=== PATIENT | female | born 1945 | race Caucasian/White ===

== ENCOUNTER → 2016-09-28 | Outpatient (CLI) | payer MEDICARE ==
[2016-09-28 19:24] LABS: IMMUNOGLOBULIN M 35.4 MG/DL (40-230)
== END ==
LOC: M SMT 11:03
PROVIDERS: ATTEND Internal Medicine Pulmonary Disease
DX: J01.90 Acute sinusitis, unspecified (principal)

== ENCOUNTER → 2016-11-11 | Outpatient (REF) | payer MEDICARE | LOC: M LAB REF 16:32 | PROVIDERS: ATTEND Internal Medicine | DX: E78.00 Pure hypercholesterolemia, unspecified (principal) ==

== ENCOUNTER 2021-02-19 19:58 | Emergency (ER) | payer MEDICARE ==
[~2021-02-19] VITALS: Ht 160 cm; Wt 71.2 kg
[2021-02-19] MEDS ORDERED: occuvite PO (20:14)
[2021-02-19] MEDS ORDERED: MULT-90 PO (20:14)
[2021-02-19] MEDS ORDERED: GARL500C2 PO (20:14)
[2021-02-19] MEDS ORDERED: NAPR-885 PO (20:14)
[2021-02-19] MEDS ORDERED: CALC600T57 PO (20:14)
[2021-02-19] MEDS ORDERED: MYCO15CR TOP (20:14)
[2021-02-19] MEDS ORDERED: CYCL-707 PO (20:14)
[2021-02-19] MEDS ORDERED: VITA1CAP25 PO (20:14)
[2021-02-19] MEDS ORDERED: VASO5TAB11 PO (20:14)
[2021-02-19] MEDS ORDERED: DOCU-153 PO (20:14)
[2021-02-19] MEDS ORDERED: FURO20TA2 PO (20:14)
[2021-02-19] MEDS ORDERED: VITA400C56 PO (20:14)
[2021-02-19] MEDS ORDERED: LEVO2TA PO (20:14)
[2021-02-19] MEDS ORDERED: AMIT50TA PO (20:14)
[2021-02-19] MEDS ORDERED: VITA500T21 PO (20:14)
[2021-02-19] MEDS ORDERED: HYDR-4514 PO (20:22)
[2021-02-19] MEDS ORDERED: KETOROLAC 30 MG/ML 1ML VIAL IV ONE (23:05)
[2021-02-19] MEDS ORDERED: METHOCARBAMOL 1,000 MG/10 ML VIAL (J2800) IV ONE (23:05)
[2021-02-19 23:36] LABS: BASO % 0.5 % (0.0-1.0); EOS # 0.2 10^3/uL (0.0-0.5); EOS % 2.2 % (0.0-3.0); HEMATOCRIT 37.9 % (36.0-47.0); HEMOGLOBIN 12.2 g/dl (12.0-15.5); LYMPH # 2.1 10^3/uL (1.5-5.0); LYMPH % 25.9 % (24.0-44.0); MEAN CORPUSCULAR HEMOGLOBIN 28.4 pg (27.0-33.0); MEAN CORPUSCULAR HGB CONC 32.2 g/dl (32.0-36.5); MEAN CORPUSCULAR VOLUME 88.3 fl (80.0-96.0); MONO # 0.5 10^3/uL (0.0-0.8); MONO % 6.2 % (2.0-8.0); NEUTROPHILS # 5.3 10^3/uL (1.5-8.5); NEUTROPHILS % 64.8 % (36.0-66.0); PLATELET COUNT, AUTOMATED 381 10^3/uL (150-450); RED BLOOD COUNT 4.29 10^6/uL (4.00-5.40); WHITE BLOOD COUNT 8.2 10^3/uL (4.0-10.0)
[2021-02-20] LABS: BLOOD UREA NITROGEN 21 MG/DL (7-18); CALCIUM LEVEL 9.3 MG/DL (8.8-10.2); CARBON DIOXIDE LEVEL 30 MEQ/L (21-32); CHLORIDE LEVEL 103 MEQ/L (98-107); CREATININE FOR GFR 0.71 MG/DL (0.55-1.30); GLOMERULAR FILTRATION RATE > 60.0 (>39); GLUCOSE, FASTING 105 MG/DL (70-100); POTASSIUM SERUM 4.2 MEQ/L (3.5-5.1); SODIUM LEVEL 138 MEQ/L (136-145)
--- NOTE | 2021-02-20 00:33 | REPVR ---
PROCEDURE INFORMATION: Exam: MR Lumbar Spine Without Contrast Exam date and time: 02/19/2021 12:19 AM Age: 75 years old Clinical indication: Other: Urinary incontinence, saddle parethesia, R/O cauda equina TECHNIQUE: Imaging protocol: Multiplanar magnetic resonance images of the lumbar spine without intravenous contrast. COMPARISON: No relevant prior studies available. FINDINGS: Vertebrae: Mild lower lumbar levoconvex curvature. Normal vertebral body heights and alignments. Small left lateral L4 vertebral osseous hemangioma. Spinal cord: Normal signal. No cord compression. Spinal cord terminates at L1. Multilevel findings: Diffuse degenerative disc desiccation, disc height loss, and associated degenerative endplate marrow signal changes most severe at L4-S1. L1-L2: No significant disc disease. No significant spinal canal stenosis. No neural foraminal stenosis. L2-L3: No significant disc disease. No significant spinal canal stenosis. No neural foraminal stenosis. L3-L4: Mild facet arthropathy, ligamentum flavum thickening, and disc bulge. Minimal spinal/foraminal stenosis. L4-L5: Moderate facet arthropathy, ligamentum flavum thickening, with disc height loss, disc bulging and endplate spurring. Right subarticular 8 x 4 mm synovial cyst. Question left-sided laminotomy. Small left subarticular disc protrusion osteophyte. Mild to moderate foraminal and subarticular and spinal stenosis. L5-S1: Mild facet arthropathy. Disc height loss with disc bulging and minimal endplate spurring. Moderate left subarticular stenosis. Mild bilateral foraminal stenosis. Soft tissues: Unremarkable. IMPRESSION: Mild moderate lumbar spondylosis detailed above. Electronically signed by: Sal Soto On 02/20/2021 00:33:24 AM
[2021-02-20] MEDS ORDERED: METH-1165 PO (01:34)
[2021-02-20 01:55] VITALS: BP 175/81
== END 2021-02-20 01:57 | disposition home or self-care (01) ==
LOC: M ED 19:58
DX: M54.5 Low back pain (principal); M47.816 Spondylosis without myelopathy or radiculopathy, lumbar region; M48.07 Spinal stenosis, lumbosacral region; I50.9 Heart failure, unspecified; Z88.1 Allergy status to other antibiotic agents; Z79.899 Other long term (current) drug therapy
CPT/HCPCS: 72148; 80048; 81001; 85025; 96374; 96375; 99284; J1885; J2800

== ENCOUNTER 2021-07-22 18:02 | Inpatient (IN) | payer MEDICARE ==
[~2021-07-22] VITALS: Ht 157.5 cm; Wt 72.7 kg
[~2021-07-22 18:02] MED LIST: AMIT50TA PO; CALC600T57 PO; CYCL-707 PO; DOCU-153 PO; FURO20TA2 PO; GARL500C2 PO; HYDR-4514 PO; LEVO2TA PO; METH-1165 PO; MULT-90 PO; MYCO15CR TOP; NAPR-885 PO; VASO5TAB11 PO; VITA1CAP25 PO; VITA400C56 PO; VITA500T21 PO; occuvite PO
--- NOTE | 2021-07-22 18:59 | REPVR ---
PROCEDURE INFORMATION: Exam: CT Head Without Contrast Exam date and time: 07/22/2021 6:24 PM Age: 75 years old Clinical indication: Weakness, extremity; Left; Additional info: Weakness left side TECHNIQUE: Imaging protocol: Computed tomography of the head without contrast. Radiation optimization: All CT scans at this facility use at least one of these dose optimization techniques: automated exposure control; mA and/or kV adjustment per patient size (includes targeted exams where dose is matched to clinical indication); or iterative reconstruction. COMPARISON: No relevant prior studies available. FINDINGS: Brain: Small cystic focus in the in posterior left frontal lobe may represent a chronic lacunar infarct. Low-attenuation focus in the central jj consistent with a chronic infarct. There is mild parenchymal volume loss. Mild white matter changes are demonstrated consistent with chronic age related small vessel ischemic changes. Cerebral ventricles: No ventriculomegaly. Paranasal sinuses: Visualized sinuses are unremarkable. No fluid levels. Mastoid air cells: Visualized mastoid air cells are well aerated. Bones/joints: Unremarkable. No acute fracture. Soft tissues: Unremarkable. IMPRESSION: 1. Low-attenuation focus in the central jj consistent with a chronic infarct. 2. There is mild parenchymal volume loss. Mild white matter changes are demonstrated consistent with chronic age related small vessel ischemic changes. Electronically signed by: Vivek Borges On 07/22/2021 18:58:43 PM
[2021-07-22 21:25] LABS: BASO % 0.4 % (0.0-1.0); EOS # 0.3 10^3/uL (0.0-0.5); EOS % 2.9 % (0.0-3.0); HEMATOCRIT 36.7 % (36.0-47.0); HEMOGLOBIN 11.8 g/dl (12.0-15.5); LYMPH # 2.3 10^3/uL (1.5-5.0); LYMPH % 24.8 % (24.0-44.0); MEAN CORPUSCULAR HEMOGLOBIN 29.2 pg (27.0-33.0); MEAN CORPUSCULAR HGB CONC 32.2 g/dl (32.0-36.5); MEAN CORPUSCULAR VOLUME 90.8 fl (80.0-96.0); MONO # 0.7 10^3/uL (0.0-0.8); MONO % 7.3 % (2.0-8.0); NEUTROPHILS # 5.8 10^3/uL (1.5-8.5); NEUTROPHILS % 64.3 % (36.0-66.0); PLATELET COUNT, AUTOMATED 342 10^3/uL (150-450); RED BLOOD COUNT 4.04 10^6/uL (4.00-5.40); WHITE BLOOD COUNT 9.1 10^3/uL (4.0-10.0)
[2021-07-22 21:35] LABS: INR 1.07; PROTHROMBIN TIME 14.3 SECONDS (12.7-14.5)
[2021-07-22 21:36] LABS: PARTIAL THROMBOPLASTIN TIME 28.1 SECONDS (25.9-37.0)
[2021-07-22 21:57] LABS: BLOOD UREA NITROGEN 20 MG/DL (7-18); CALCIUM LEVEL 9.4 MG/DL (8.8-10.2); CARBON DIOXIDE LEVEL 32 MEQ/L (21-32); CHLORIDE LEVEL 103 MEQ/L (98-107); CK-MB VALUE MASS 1.4 NG/ML (<3.6); CPK CREATINE PHOSPHOKINASE 50 U/L (26-192); CREATININE FOR GFR 0.72 MG/DL (0.55-1.30); GLOMERULAR FILTRATION RATE > 60.0 (>39); GLUCOSE, FASTING 131 MG/DL (70-100); POTASSIUM SERUM 5.2 MEQ/L (3.5-5.1); SODIUM LEVEL 136 MEQ/L (136-145); TROPONIN I < 0.02 NG/ML (< 0.10)
[2021-07-22 22:06] LABS: RSV AMPLIFICATION NEGATIVE (NEGATIVE)
[2021-07-22] MEDS ORDERED: LABETALOL 100MG/20ML VIAL IV STA (22:12)
--- NOTE | 2021-07-22 23:04 | REPVR ---
PROCEDURE INFORMATION: Exam: MR Head Without Contrast Exam date and time: 07/22/2021 9:40 PM Age: 75 years old Clinical indication: Numbness / parasthesia and speech disturbance and weakness, extremity; Left; Bilateral; Slurred speech; Additional info: Neurodeficits, post CVA on CT TECHNIQUE: Imaging protocol: MR of the head without contrast. COMPARISON: CT Head without contrast 07/22/2021 6:25 PM FINDINGS: Motion limited examination. Major vascular flow voids at the skull base are preserved. No extra-axial fluid collection. No hydrocephalus. No midline shift or intracranial mass effect. Nonspecific white matter gliosis, probable chronic microvascular ischemia. 6 mm cystic lesion at the left frontal lobe, stable from recent CT study. There is diffusion restriction involving the right jj measuring 2 cm. Associated T2 prolongation. Visualized paranasal sinuses and mastoid air cells are clear. IMPRESSION: 2 cm acute/early subacute ischemic infarct at the right jj. Electronically signed by: Ajay Cardozo On 07/22/2021 23:04:22 PM
--- NOTE | 2021-07-22 23:04 | REPVR ---
PROCEDURE INFORMATION: Exam: MRA Head Without Contrast; Arteriography Exam date and time: 07/22/2021 9:40 PM Age: 75 years old Clinical indication: Numbness and speech disturbance and weakness; Slurred speech; Additional info: Neurodeficits, post CVA on CT TECHNIQUE: Imaging protocol: Magnetic resonance angiography head without contrast. Exam focused on the arteries. COMPARISON: CT Head without contrast 07/22/2021 6:25 PM FINDINGS: Limitations: Patient motion. ANTERIOR CIRCULATION: Right internal carotid artery: Intracranial segment is patent with no significant stenosis. No aneurysm. Right middle cerebral artery: No occlusion or significant stenosis. No aneurysm. 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 Left internal carotid artery: Intracranial segment is patent with no significant stenosis. No aneurysm. Left middle cerebral artery: No occlusion or significant stenosis. No aneurysm. Left anterior cerebral artery: No occlusion or significant stenosis. No aneurysm. POSTERIOR CIRCULATION: Right vertebral artery: No occlusion or significant stenosis. No aneurysm. Left vertebral artery: Left vertebral artery is dominant. Basilar artery: No occlusion or significant stenosis. No aneurysm. Right posterior cerebral artery: Moderate to severe right REMOTE SENSING TECHNOLOGIST P2 stenosis. Left posterior cerebral artery: There is severe left REMOTE SENSING TECHNOLOGIST stenosis at the proximal P2 segment. IMPRESSION: 1. No large vessel occlusion. 2. Severe left REMOTE SENSING TECHNOLOGIST P2 stenosis. 3. Moderate to severe right REMOTE SENSING TECHNOLOGIST P2 stenosis. Electronically signed by: Ajay Cardozo On 07/22/2021 23:03:52 PM
[2021-07-22] MEDS ORDERED: ONDANSETRON 4MG/2ML VIAL IV ONE (23:10)
[2021-07-22] MEDS: MORPHINE 4 MG/ML 1ML VIAL/SYRINGE (J2270) IV PRN (23:24)
--- NOTE | 2021-07-22 23:42 | REPVR ---
PROCEDURE INFORMATION: Exam: XR Chest Exam date and time: 07/22/2021 10:36 PM Age: 75 years old Clinical indication: Other: CVA TECHNIQUE: Imaging protocol: XR of the chest. Views: 1 view. COMPARISON: No relevant prior studies available. FINDINGS: Lungs: Unremarkable. No consolidation. Pleural spaces: Unremarkable. No pleural effusion. No pneumothorax. Heart/Mediastinum: Unremarkable. No cardiomegaly. Bones/joints: Unremarkable. Soft tissues: There are moderately generous overlying soft tissues. IMPRESSION: Negative chest. Electronically signed by: Mitul Uribe On 07/22/2021 23:41:56 PM
[2021-07-22] MEDS ORDERED: CYCLOBENZAPRINE 10MG TABLET PO ONE (23:45)
[2021-07-23] MEDS ORDERED: ASPIRIN 325 MG TAB PO ONE (00:15)
[2021-07-23] MEDS: MORPHINE 4 MG/ML 1ML VIAL/SYRINGE (J2270) IV PRN (00:40)
[2021-07-23] MEDS ORDERED: MAALOX 30 ML SUSP *UDC PO PRN (01:10)
[2021-07-23] MEDS ORDERED: MOM 30ML SUSPENSION UDC PO PRN (01:10)
[2021-07-23] MEDS ORDERED: ACETAMINOPHEN TAB 650MG DOSE (2X325MG) PO PRN (01:10)
[2021-07-23] MEDS ORDERED: HYDR-4514 PO (01:18)
[2021-07-23] MEDS ORDERED: NYST1CRE15 EXT (01:18)
[2021-07-23] MEDS ORDERED: LEVO2TA PO (01:18)
[2021-07-23] MEDS ORDERED: OYST500T91 PO (01:18)
[2021-07-23] MEDS ORDERED: FURO20TA2 PO (01:18)
[2021-07-23] MEDS ORDERED: C 50TAB PO (01:18)
[2021-07-23] MEDS ORDERED: [UNRECOGNIZED DRUG - OTHER] PO (01:18)
[2021-07-23] MEDS ORDERED: NAPR-885 PO (01:18)
[2021-07-23] MEDS ORDERED: CVS10CAP PO (01:18)
[2021-07-23] MEDS ORDERED: VITMTA PO (01:18)
[2021-07-23] MEDS ORDERED: DOCU100C16 PO (01:18)
[2021-07-23] MEDS ORDERED: D31000TA2 PO (01:18)
[2021-07-23] MEDS ORDERED: AMIT50TA PO (01:18)
[2021-07-23] MEDS ORDERED: SENN-52 PO (01:18)
[2021-07-23] MEDS ORDERED: ENAL5TA PO (01:18)
[2021-07-23] MEDS ORDERED: CYCL10TA5 PO (01:18)
[2021-07-23] MEDS ORDERED: HOME MED LIST COMPLETE! XX SCH (01:20)
[2021-07-23] MEDS ORDERED: ISOVUE-370 76% 100ML VIAL As Ordered ONE (01:23)
--- NOTE | 2021-07-23 01:54 | REPVR ---
PROCEDURE INFORMATION: Exam: CT Angiography Neck With Contrast Exam date and time: 07/23/2021 1:19 AM Age: 75 years old Clinical indication: Other: Syncope; Additional info: CVA TECHNIQUE: Imaging protocol: Computed tomography angiography of the neck with contrast. 3D rendering (Not supervised by radiologist): MIP and/or 3D reconstructed images were created by the technologist. Radiation optimization: All CT scans at this facility use at least one of these dose optimization techniques: automated exposure control; mA and/or kV adjustment per patient size (includes targeted exams where dose is matched to clinical indication); or iterative reconstruction. Contrast material: ISO; Contrast volume: 100 ml; Contrast route: INTRAVENOUS (IV); COMPARISON: MRA BRAIN W/O CONTRAST 07/22/2021 9:27 PM FINDINGS: Right common carotid artery: No stenosis. No dissection or occlusion. Right internal carotid artery: No stenosis of the extracranial segment. No dissection or occlusion. Right external carotid artery: No occlusion or stenosis of the origin. Left common carotid artery: No stenosis. No dissection or occlusion. Left internal carotid artery: No stenosis of the extracranial segment. No dissection or occlusion. Left external carotid artery: No occlusion or stenosis of the origin. 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 Left vertebral artery: No stenosis. No dissection or occlusion. Soft tissues: Normal. No significant soft tissue swelling. Bones/joints: No acute fracture. IMPRESSION: Negative CTA neck. No significant stenosis and no occlusion. REFERENCES: NASCET CRITERIA. The degree of internal carotid artery stenosis is based on NASCET criteria. Normal is no stenosis. Mild is less than 50% stenosis. Moderate is 50-69% stenosis. Severe is 70% to 99% stenosis. Total occlusion is no detectable patent lumen. Electronically signed by: Mitul Uribe On 07/23/2021 01:53:56 AM
--- NOTE | 2021-07-23 02:04 | REPVR ---
PROCEDURE INFORMATION: Exam: CT Angiography Head With Contrast, Arteriography Exam date and time: 07/23/2021 1:19 AM Age: 75 years old Clinical indication: Other: Syncope; Additional info: CVA TECHNIQUE: Imaging protocol: Computed tomography angiography of the head with contrast. Exam focused on the arteries. 3D rendering (Not supervised by radiologist): MIP and/or 3D reconstructed images were created by the technologist. Radiation optimization: All CT scans at this facility use at least one of these dose optimization techniques: automated exposure control; mA and/or kV adjustment per patient size (includes targeted exams where dose is matched to clinical indication); or iterative reconstruction. Contrast material: ISO; Contrast volume: 100 ml; Contrast route: INTRAVENOUS (IV); COMPARISON: MRA BRAIN W/O CONTRAST 07/22/2021 9:27 PM FINDINGS: ANTERIOR CIRCULATION: Right internal carotid artery: Unremarkable. Intracranial segment is patent with no significant stenosis. No aneurysm. Right middle cerebral artery: Mild origin stenosis of the right M1 segment. The right M2 branches appear to be adequately patent. 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 Left internal carotid artery: Unremarkable. Intracranial segment is patent with no significant stenosis. No aneurysm. Left middle cerebral artery: Unremarkable. No occlusion or significant stenosis. No aneurysm. Left anterior cerebral artery: Unremarkable. No occlusion or significant stenosis. No aneurysm. POSTERIOR CIRCULATION: Right vertebral artery: Unremarkable. No occlusion or significant stenosis. No aneurysm. Left vertebral artery: Unremarkable. No occlusion or significant stenosis. No aneurysm. Basilar artery: Unremarkable. No occlusion or significant stenosis. No aneurysm. Right posterior cerebral artery: Short segment significant stenosis of the proximal right posterior cerebral artery along the anterolateral aspect of the right cerebral peduncle. Small patent right posterior communicating artery which is significant supply to the right posterior cerebral artery and connects proximal to the right posterior cerebral artery stenosis. Left posterior cerebral artery: Significant stenosis with caliber change of the proximal left posterior cerebral artery extending along the anterolateral aspect of the left cerebral peduncle. Brain: No definite mass, mass effect, or midline shift. Cerebral ventricles: No ventriculomegaly. Bones/joints: Unremarkable. No acute fracture. Soft tissues: Unremarkable. IMPRESSION: 1. Stenosis of the proximal posterior cerebral arteries bilaterally along the anterolateral aspects of the cerebral peduncles. 2. Mild origin stenosis of the right M1 segment. 3. Otherwise negative CTA head. No additional stenosis and no occlusion. Electronically signed by: Mitul Uribe On 07/23/2021 02:04:19 AM
[2021-07-23] MEDS ORDERED: hydrALAZINE 20MG/ML 1ML VIAL (J0360 PER 20MG) IV ONE (02:10)
[2021-07-23] MEDS ORDERED: NS 1,000 ML IV SCH (02:20)
[2021-07-23] MEDS ORDERED: PILL CUTTER 1 EACH XX PRN (02:55)
[2021-07-23] MEDS: ATORVASTATIN 20 MG TAB PO SCH (03:54)
[2021-07-23] MEDS ORDERED: MYCOLOG CREAM 15 GM (NYSTATIN/TRIAMCINOLONE) EXT SCH (04:40)
--- NOTE | 2021-07-23 04:41 | IPNPDOC ---
Text Note Date of Service The patient was seen on 07/23/21. VS,Antoine, I+O VS, Antoine, I+O Laboratory Tests 07/22/21 21:06 Vital Signs Date Time Temp Pulse Resp B/P (MAP) Pulse Ox O2 Delivery O2 Flow Rate FiO2 07/23/21 00:45 71 18 179/80 (113) 96 Room Air JUAN SAMSON MD Jul 23, 2021 04:41
[2021-07-23] MEDS ORDERED: hydrALAZINE 20MG/ML 1ML VIAL (J0360 PER 20MG) IV PRN (04:45)
--- NOTE | 2021-07-23 04:46 | HPEPDOC ---
General Date of Admission Jul 23, 2021 at 01:03 Date of Service: Jul 23, 2021 Attending Physician: JUAN SAMSON MD Chief Complaint dizziness History of Present Illness History of present illness: Mrs. Amanda is a 75 year old female who presented to the emergency department for two days of dizziness, left sided weakness, and "feeling off-balance". She states that her switched her muscle relaxer from cyclobenzaprine to methocarbamol on Monday (07/20/21) and noticed that she felt off-balance, dizziness, and "drunk". She thought this was a side effect of the new medication and decided to take a half dose of methocarbamol instead of a full dose in the hopes she wouldn't feel dizzy with a lower dose. On Monday night she noticed she was having difficulty speaking and swallowing as well as a heaviness on the left side of her body. She reports weakness of her left arm and leg. On morning she noticed the vision in her left eye was blurred. She decided to present to the Emergency department after she told her daughter about her new symptoms and they both agreed she should be evaluated. She denies facial droop, tinnitus, loss of consciousness, chest pain, or palpitations. She admits to also having a new onset headache located around her forehead. In the ED she was found to have a 2cm subacute jj CVA & was given IV labetalol. Review of systems General: denies fever, chills, night sweats, loss of appetite, fatigue. Admits to dizziness and feeling off balance HEENT: denies changes in hearing, facial droop, loss of sensation on face. Admits to dysphagia, blurred vision in left eye, headache, and slurred speech. Cardiovascular: denies chest pain or palpitations. Pulmonary: denies shortness of breath, pain with inspiration, cough, or wheezing. Abdomen:denies vomiting, diarrhea, blood in urine/stool, or constipation. admits to nausea Extremities: denies loss of sensation, swelling. admits to weakness/heaviness of upper and lower extremity Skin:denies easy bruising or bleeding. Neurology: admits to chronic loss of sensation in feet. Past medical / surgical history: Hypertension Hyperlipidemia Chronic back pain Hysterectomy Rectocele repair Cystocele repair Appendectomy R carpal tunnel release Bilateral partial knee replacement Social history: Patient denies tobacco, alcohol, of illicit drug use. She lives with her in [place], [place] Family history: Mother from a massive stroke at age 91 Allergies: See below Physical examination Vital Signs Date Time Temp Pulse Resp B/P (MAP) Pulse Ox O2 Delivery O2 Flow Rate FiO2 07/22/21 20:36 199/94 (129) 07/22/21 20:47 79 98 07/22/21 23:00 18 Room Air 07/23/21 08:45 98.9 General: An elderly female sitting in bed in no acute distress, she is pleasant to speak with. HEENT: PERRLA, EOMI, mucous membranes appear dry, no lymphadenopathy Cardiovascular: regular rate and rhythm, a 2/6 systolic ejection murmur was best appreciated in the 2nd intercostal space on the right. pulses are 2+ throughout, capillary refill is <2 seconds Pulmonary: equal air intake bilaterally, clear to auscultation, no wheezes, rhonchi, or rales appreciated. Abdomen: soft, nontender to palpation, positive bowel sounds, no organomegaly noted, Extremities: no edema or cyanosis. Skin: warm and dry Neurology: CN 2-12 are intact, patient has full sensation of upper and lower extremities with the exception of the soles of her feet bilaterally, which she states is secondary to a chronic back injury. Musculoskeletal: There is a mild reduction in strength on the left side with assistant case manager, abduction of the arm at the shoulder joint, and extension of the knee. Laboratory Tests 07/22/21 21:06 Imaging: Head CT: Low-attenuation focus in the central jj consistent with a chronic infarct. There is mild parenchymal volume loss. Mild white matter changes are demonstrated consistent with chronic age related small vessel ischemic changes. Brain MRI: 2 cm acute/early subacute ischemic infarct at the right jj. Brain MRA: No large vessel occlusion. Severe left STAPLE PROCESSING MACHINE OPERATOR P2 stenosis. Moderate to severe right STAPLE PROCESSING MACHINE OPERATOR P2 stenosis. Chest x-ray:IMPRESSION: Negative chest. CT angiography: Stenosis of the proximal posterior cerebral arteries bilaterally along the anterolateral aspects of the cerebral peduncles. Mild origin stenosis of the right M1 segment. Otherwise negative CTA head. No additional stenosis and no occlusion. Neck CTA:Negative CTA neck. No significant stenosis and no occlusion. Assessment: Mrs. Amanda is a 75 year old female with a past medical history of hypertension, hyperlipidemia, and chronic back pain who presented to the emergency department for two days of dizziness, left sided weakness, and "feeling off-balance". In the ED she was found to have a 2cm subacute jj CVA as well as hypertensive urgency. She was admitted for a syncopal workup as well as treatment for hypertensive urgency. Plan: Subacute CVA of jj -Brain MRI results: 2 cm acute/early subacute ischemic infarct at the right jj. -Dr. Martinez was consulted on this patient in the ED. He advised ASA 325mg and starting patient on a statin. He will visit her this AM. -We appreciate Dr. Martinez's input on this patient -a systolic ejection murmur was noted, echocardiogram has been ordered -continue telemetry -continue frequent neuro checks, blood glucose monitoring, blood pressure parameters (<180 systolic) -patient given ASA 325mg, started on atorvastatin 40mg Hypertensive urgency -BP of 198/95 in ED -patient given one dose of IV labetalol in the ED, patient continued to have BP >180 systolic -started hydralazine 5mg IV prn q 6 hours -continue furosemide and enalapril Hyperlipidemia -started patient on atorvastatin 40mg Chronic back pain -continue cyclobenzaprine DVT prophylaxis: -yes continue heparin [facility] Home Medications Scheduled Amitriptyline HCl (Amitriptyline HCl) 50 Mg Tablet, 50 MG PO QHS, (Reported) Ascorbic Acid (Vitamin C) 500 Mg Tablet, 500 MG PO DAILY, (Reported) Biotin (Biotin) 10,000 Mcg Capsule, 10 MG PO DAILY, (Reported) Calcium Carbonate/Vitamin D3 (Calcium 500-Vit D3 200 Tablet) 1 Each Tablet, 1 TAB PO DAILY, (Reported) Cholecalciferol (Vitamin D3) (Vitamin D3) 1,000 Unit Tablet, 1,000 UNITS PO DAILY, (Reported) Docusate Sodium (Docusate Sodium) 100 Mg Capsule, 200 MG PO DAILY, (Reported) Enalapril Maleate (Enalapril Maleate) 5 Mg Tablet, 5 MG PO DAILY, (Reported) Furosemide (Furosemide) 20 Mg Tablet, 10 MG PO BID, (Reported) Garlic (Garlic) 500 Mg Capsule, 1,000 MG PO DAILY, (Reported) Levothyroxine Sodium (Synthroid) 200 Mcg Tablet, 200 MCG PO DAILY, (Reported) Multivitamins (Thera M Plus Tablet) 1 Each Tablet, 1 TAB PO DAILY, (Reported) Naproxen (Naproxen) 500 Mg Tablet, 500 MG PO BID, (Reported) Nystatin/Triamcin (Nystatin-Triamcinolone Cream) 15 Gm Cream..g., 1 DOSE EXT ASDIRECTED, (Reported) APPLY SMALL AMOUNT TO GROIN AFTER EVERY URINATION Sennosides/Docusate Sodium (Senna Plus Tablet) 1 Each Tablet, 2 TAB PO DAILY, (Reported) [Max Strength Neuro ] , 2 CAP PO BID, (Reported) Scheduled PRN Cyclobenzaprine HCl (Cyclobenzaprine HCl) 10 Mg Tablet, 10 MG PO QID PRN for MUSCLE SPASMS, (Reported) Hydrocodone/Acetaminophen (Hydrocodone-Acetamin 7.5-325) 1 Each Tablet, 2 TAB PO Q6H PRN for MODERATE/SEVERE PAIN (PS 5-10), (Reported) Allergies Coded Allergies: Influenza Virus Vaccines (Verified Allergy, Severe, paralized for 3 days, 07/23/21) amoxicillin (Verified Allergy, Intermediate, rash, 02/19/21) codeine (Verified Allergy, Intermediate, vomiting, 02/19/21) erythromycin base (Verified Allergy, Unknown, 07/23/21) A-FIB/CHADSVASC A-FIB History Current/History of A-Fib/PAF?: No Current PO Anticoag Therapy: No Plan / VTE VTE Prophylaxis Ordered?: Yes GME ATTESTATION GME ATTESTATION My faculty preceptor for this patient encounter was physically present during the encounter and was fully available. All aspects of the patient interview, examination, medical decision making process, and medical care plan development were reviewed and approved by the faculty preceptor. The faculty preceptor is aware and concurs with the plan as stated in the body of this note and will attest to such by his/her cosignature. ATTENDING NOTE I independently examined the patient, discussed the case with and agree with the findings as documented. LOW KUMAR DO Jul 23, 2021 04:46 JUAN SAMSON MD Jul 24, 2021 07:18
[2021-07-23] MEDS: ANEXSIA, NORCO 7.5MG/325MG TABLET(HYDROCODONE/APAP) PO PRN ×3 (05:02→23:18)
[2021-07-23 05:04] LABS: BLOOD UREA NITROGEN 17 MG/DL (7-18); CARBON DIOXIDE LEVEL 33 MEQ/L (21-32); CHLORIDE LEVEL 104 MEQ/L (98-107); CREATININE FOR GFR 0.71 MG/DL (0.55-1.30); GLOMERULAR FILTRATION RATE > 60.0 (>39); GLUCOSE, FASTING 91 MG/DL (70-100); POTASSIUM SERUM 4.2 MEQ/L (3.5-5.1); SODIUM LEVEL 139 MEQ/L (136-145)
[2021-07-23] MEDS: HEPARIN SOD (PORCINE) 5000UNITS/ML 1ML VIAL/SYRINGE SQ SCH ×3 (06:28→20:53)
[2021-07-23] MEDS: LEVOTHYROXINE 100MCG TABLET (0.1MG) PO SCH (06:29)
[2021-07-23 08:08] LABS: BLOOD UREA NITROGEN 17 MG/DL (7-18); CALCIUM LEVEL 9.1 MG/DL (8.8-10.2); CARBON DIOXIDE LEVEL 29 MEQ/L (21-32); CHLORIDE LEVEL 106 MEQ/L (98-107); CHOLESTEROL LEVEL 187 MG/DL (<200); CHOLESTEROL RISK RATIO 3.666 (<5); GLOMERULAR FILTRATION RATE > 60.0 (>39); GLUCOSE, FASTING 114 MG/DL (70-100); HDL CHOLESTEROL 51 MG/DL (>40); LDL CHOLESTEROL 108 MG/DL (<100); NON-HDL-C 136 MG/DL; POTASSIUM SERUM 4.1 MEQ/L (3.5-5.1); SODIUM LEVEL 139 MEQ/L (136-145); TRIGLYCERIDES LEVEL 138 MG/DL (<150)
[2021-07-23 08:43] LABS: HEMOGLOBIN A1c 6.1 %
[2021-07-23] MEDS: CALCIUM/VITAMIN D 500 MG TAB PO SCH (10:12)
[2021-07-23] MEDS: VITAMIN D 1,000 INTERNATIONAL UNITS TABLET PO SCH (10:12)
[2021-07-23] MEDS: ASPIRIN 81MG ENTERIC TABLET PO SCH (10:13)
[2021-07-23] MEDS: FUROSEMIDE 20 MG TAB PO SCH ×2 (10:13→17:15)
[2021-07-23] MEDS: SENOKOT S TAB PO SCH (10:13)
[2021-07-23] MEDS: DOCUSATE SODIUM 100MG CAPSULE PO SCH ×2 (10:17→20:53)
[2021-07-23] MEDS: ENALAPRIL MALEATE 5 MG TAB PO SCH (12:06)
[2021-07-23 13:35] LABS: BLOOD UREA NITROGEN 15 MG/DL (7-18); CALCIUM LEVEL 9.7 MG/DL (8.8-10.2); CARBON DIOXIDE LEVEL 31 MEQ/L (21-32); CHLORIDE LEVEL 102 MEQ/L (98-107); CREATININE FOR GFR 0.74 MG/DL (0.55-1.30); GLOMERULAR FILTRATION RATE > 60.0 (>39); GLUCOSE, FASTING 121 MG/DL (70-100); POTASSIUM SERUM 4.4 MEQ/L (3.5-5.1); SODIUM LEVEL 139 MEQ/L (136-145)
--- NOTE | 2021-07-23 15:33 | ECHO ---
ECHOCARDIOGRAM DATE OF PROCEDURE: 07/23/2021 Age: 75 Gender: Female Height: 62 inches Weight: 160 pounds Body surface area: 1.74 m2 Inpatient, currently in the emergency room. REFERRING PHYSICIAN: Yasmine Chopra D.O. INDICATION: Cerebrovascular accident (CVA), cardiac source of embolic material? MEASUREMENTS: 2D Measurements: RV - 3.2 cm LV - 4.2 cm Septum 1.2 cm Posterior wall 1.2 cm Aortic root 3.0 cm LA - 3.8 cm LVEF 75% Doppler Measurements: AV - 2.22 m/s LVOT - 1.03 m/s LVOT 1.8 cm Mean AV systolic gradient 10 mmHg Dimensionless index 0.44 MV-E 108, A 113, E/A ratio 1 Early mitral deceleration time 197 msec E prime medial 8.9 A prime medial 10.3 E prime lateral 7.4 Average E/E prime ratio 13.8/PCWP 19 mmHg PV - 0.85 m/s Pulmonary artery acceleration time 109 msec RVSP 34 mmHg IVC - 1.8 cm COMMENTS: Normal sinus rhythm without intraventricular conduction disturbance. M-mode and 2-dimensional echocardiography was performed with pulse, continuous wave, color flow, and tissue Doppler studies. Borderline left ventricular hypertrophy with hyperkinetic wall motion. Mildly dilated left atrium, appreciated best from the apical projections with grade 1 LV diastolic dysfunction and current estimated mean left atrial pressure upper limits of normal to slightly increased. Normal right heart chamber sizes and motion with Doppler sign of borderline to mild pulmonary hypertension. Normal IVC size and collapse. Normal aortic dimensions. Moderate aortic valvular sclerosis with no more than marginal aortic stenosis and no apparent insufficiency. Mild degenerative changes of the mitral valvular apparatus without inflow tract obstruction and only trace insufficiency. Normal-appearing tricuspid valve with only trace insufficiency. No apparent intracardiac mass but could not rule out a sessile vegetation on the aortic valve. No pericardial effusion.
--- NOTE | 2021-07-23 15:52 | IPNPDOC ---
Text Note Date of Service The patient was seen on 07/23/21. NOTE Subjective: Patient is a 75-year-old female presented to emergency department for 2 days of dizziness, left-sided weakness and "feeling off balance". Patient says she is still having dizziness. Patient does state that she is feeling slightly better this morning has been able to get up and go to the bathroom without any difficulty. She did feel dizzy during this process as well. Patient denies any fevers or chills. Patient is otherwise feeling well today. Review of systems: General: Patient denies fevers HEENT: Patient denies headaches Cardiovascular: Patient denies chest pain Respiratory: Patient denies shortness of breath, cough GI: Patient denies abdominal pain, nausea, vomiting, diarrhea : Patient denies increased frequency or pain with urination Extremities: Patient denies swelling or pain in extremities Neurological: Patient reports dizziness as above Physical exam: Vitals: See below General: Alert and oriented female patient who was sitting on the edge of the bed when I walked in the room. Patient not appear to be in any acute distress. HEENT: Normocephalic, atraumatic, moist mucous membranes. Neck: No lymphadenopathy or thyromegaly Cardiac: Regular rate and rhythm, no murmurs, normal S1, normal S2 Pulm: Clear to auscultation bilaterally. No wheezes, rhonchi, rales Abd: Nondistended, nontender to palpation, normal bowel sounds Ext: No edema bilateral lower extremities Neuro: Cranial nerves III through XII intact bilaterally. Patient had equal strength in upper and lower extremities bilaterally. Patient reported sensation to light touch in upper and lower extremities bilaterally. Labs: See below Imaging: Echocardiogram performed on 07/23/2021 was reported to show normal sinus rhythm without interventricular conduction disturbance. Borderline left ventricular hypertrophy with hypokinetic wall motion. Mildly dilated left atrium, appreciated best from the apical projections with grade 1 left ventricular diastolic dysfunction current estimated mean left atrial pressure is upper limits of normal to slightly increased. Normal heart chamber sizes and motion with Doppler sign of borderline to mild pulmonary hypertension. Normal IVC size and collapse. Normal aortic dimensions. Moderate aortic valvular sclerosis with no more than marginal aortic stenosis and no apparent insufficiency. Mild degenerative changes of the mitral valvular apparatus without inflow tract obstruction and only trace insufficiency. Normal-appearing tricuspid valve with only trace insufficiency. No apparent intracardiac mass but could not rule out sessile vegetation on the aortic valve. No pericardial effusion. Assessment/plan: 75-year-old female who presented to the emergency department with dizziness was diagnosed with a acute/subacute pontine CVA. 1. Subacute CVA of the jj. Brain MRI showed the early acute/early subacute ischemic infarct in the right jj. Dr. Martinez of neurology was contacted in the emergency department and advised aspirin 325 mg and starting patient on statin therapy. A1c was ordered and shows an A1c of 6.1. Patient had frequent neurochecks. Patient had echocardiogram which could not rule out sessile vegetation on the aortic valve. I did contact cardiology who stated that a RUBY is not warranted immediately and further medical work-up should be performed to help rule out endocarditis. Blood cultures, ESR, and CRP have been ordered and we will continue to monitor the patient's clinical status. Patient does not have any fever nor does she have a leukocytosis at this time. 2. Hypertensive urgency, resolved. Patient's blood pressures have been within the normal range and we will continue to monitor. 3. Hyperlipidemia. Patient has been started on atorvastatin 40 mg. 4. Chronic back pain continue cyclobenzaprine. DVT Prophylaxis: Heparin Disposition: Pending blood cultures VS,Zohrehe, I+O VS, Zohrehe, I+O Laboratory Tests 07/22/21 21:06 07/23/21 04:18 07/23/21 07:25 07/23/21 13:00 Vital Signs Date Time Temp Pulse Resp B/P (MAP) Pulse Ox O2 Delivery O2 Flow Rate FiO2 07/23/21 08:45 98.9 73 18 144/64 (90) 91 Room Air ANGI KIRK Jul 23, 2021 15:52
[2021-07-23 16:30] VITALS: BP 172/85
[2021-07-23 17:00] VITALS: BP 172/85
--- NOTE | 2021-07-23 19:02 | ECGEPIP ---
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
[2021-07-23] MEDS: AMITRIPTYLINE 50 MG TAB PO SCH (20:53)
[2021-07-23] MEDS: CYCLOBENZAPRINE 10MG TABLET PO PRN (20:54)
[2021-07-23 21:40] VITALS: BP 162/60
[2021-07-23 22:00] VITALS: BP 162/60
[2021-07-23 22:28] VITALS: O2SAT 96
[2021-07-23 22:37] LABS: APPEARANCE, URINE CLEAR (CLEAR); BACTERIA, URINE AUTO NEGATIVE (NEGATIVE); BILIRUBIN, URINE AUTO NEGATIVE (NEGATIVE); BLOOD, URINE BLOOD NEGATIVE (NEGATIVE); COLOR, URINE STRAW (YELLOW); GLUCOSE, URINE (UA) AUTO NEGATIVE (NEGATIVE); KETONE, URINE AUTO NEGATIVE (NEGATIVE); LEUKOCYTE ESTERASE, URINE AUTO NEGATIVE (NEGATIVE); NITRITE, URINE AUTO NEGATIVE (NEGATIVE); PROTEIN, URINE AUTO NEGATIVE (NEGATIVE); RBC, URINE AUTO 2 /HPF (0-3); SPECIFIC GRAVITY URINE AUTO 1.006 (1.002-1.035); SQUAMOUS EPITHELIAL CELL UR AU 0 /HPF (0-6); UROBILINOGEN, URINE AUTO 0.2 mg/dL (0.0-2.0); WBC, URINE AUTO 0 /HPF (0-3)
[2021-07-23] MEDS ORDERED: MORPHINE 4 MG/ML 1ML VIAL/SYRINGE (J2270) IV ONE (23:55)
[2021-07-24 02:00] VITALS: BP 127/65
[2021-07-24] MEDS: ANEXSIA, NORCO 7.5MG/325MG TABLET(HYDROCODONE/APAP) PO PRN ×3 (05:23→21:08)
[2021-07-24] MEDS: LEVOTHYROXINE 100MCG TABLET (0.1MG) PO SCH (05:23)
[2021-07-24] MEDS: HEPARIN SOD (PORCINE) 5000UNITS/ML 1ML VIAL/SYRINGE SQ SCH ×3 (05:24→21:09)
[2021-07-24] MEDS: CYCLOBENZAPRINE 10MG TABLET PO PRN ×3 (05:24→22:26)
[2021-07-24 06:00] VITALS: BP 122/46
[2021-07-24 06:12] VITALS: BP 122/46
[2021-07-24 07:08] LABS: HEMATOCRIT 31.7 % (36.0-47.0); HEMOGLOBIN 10.4 g/dl (12.0-15.5); MEAN CORPUSCULAR HEMOGLOBIN 29.8 pg (27.0-33.0); MEAN CORPUSCULAR HGB CONC 32.8 g/dl (32.0-36.5); MEAN CORPUSCULAR VOLUME 90.8 fl (80.0-96.0); PLATELET COUNT, AUTOMATED 286 10^3/uL (150-450); RED BLOOD COUNT 3.49 10^6/uL (4.00-5.40); WHITE BLOOD COUNT 6.6 10^3/uL (4.0-10.0)
[2021-07-24 07:40] LABS: BLOOD UREA NITROGEN 13 MG/DL (7-18); CALCIUM LEVEL 8.7 MG/DL (8.8-10.2); CARBON DIOXIDE LEVEL 30 MEQ/L (21-32); CHLORIDE LEVEL 103 MEQ/L (98-107); CREATININE FOR GFR 0.67 MG/DL (0.55-1.30); GLOMERULAR FILTRATION RATE > 60.0 (>39); GLUCOSE, FASTING 106 MG/DL (70-100); POTASSIUM SERUM 3.9 MEQ/L (3.5-5.1); SODIUM LEVEL 139 MEQ/L (136-145)
[2021-07-24 09:00] VITALS: O2SAT 93
[2021-07-24] MEDS: ASPIRIN 81MG ENTERIC TABLET PO SCH (09:50)
[2021-07-24] MEDS: DOCUSATE SODIUM 100MG CAPSULE PO SCH ×2 (09:50→21:09)
[2021-07-24] MEDS: SENOKOT S TAB PO SCH (09:51)
[2021-07-24] MEDS: VITAMIN D 1,000 INTERNATIONAL UNITS TABLET PO SCH (09:51)
[2021-07-24] MEDS: CALCIUM/VITAMIN D 500 MG TAB PO SCH (09:51)
[2021-07-24] MEDS: FUROSEMIDE 20 MG TAB PO SCH ×2 (09:51→16:18)
[2021-07-24] MEDS: ENALAPRIL MALEATE 5 MG TAB PO SCH (09:53)
[2021-07-24] MEDS: ATORVASTATIN 20 MG TAB PO SCH (09:53)
--- NOTE | 2021-07-24 12:21 | IPNPDOC ---
Text Note Date of Service The patient was seen on 07/24/21. NOTE Subjective: Patient is a 75-year-old female presented the emergency department for 2 days of dizziness, left-sided weakness and "feeling off balance". Patient's is feeling better today. Patient had an echocardiogram which could not rule out sessile vegetation on aortic valve. Blood cultures have been ordered and are pending. Patient states she is feeling otherwise well. Patient denies any fevers or chills. Review of systems: General: Patient denies fevers HEENT: Patient denies headaches Cardiovascular: Patient denies chest pain Respiratory: Patient denies shortness of breath, cough GI: Patient denies abdominal pain, nausea, vomiting, diarrhea : Patient denies increased frequency or pain with urination Extremities: Patient denies swelling or pain in extremities Neurological: Patient reports improvement in her dizziness. Physical exam: Vitals: See below General: Alert and oriented female patient was sitting on the edge of the bed when I walked in the room. Patient did not appear to be in any acute distress. HEENT: Normocephalic, atraumatic, moist mucous membranes. Neck: No lymphadenopathy or thyromegaly Cardiac: Regular rate and rhythm, no murmurs, normal S1, normal S2 Pulm: Clear to auscultation bilaterally. No wheezes, rhonchi, rales Abd: Nondistended, nontender to palpation, normal bowel sounds Ext: No edema bilateral lower extremities Neuro: Cranial nerves II through XII intact bilaterally [id number] testing within normal limits bilaterally. Patient had equal strength in upper and lower extremities bilaterally. Patient reported sensation to light touch in upper and lower extremities bilaterally. Labs: See below Imaging: No new imaging has been performed Assessment/plan: 75-year-old female who presented the emergency department with dizziness and was diagnosed with an acute/subacute pontine CVA. 1. Subacute CVA of the jj. MRI of the brain showed early acute/early subacute ischemic infarct in the right jj. Dr. Martinez of neurology has seen the patient. We will continue with aspirin and statin therapy. A1c was within normal limits. Because of possibility of sessile vegetation on aortic valve, patient will remain in the hospital until blood cultures are negative. ESR and CRP are mildly elevated and we will continue to monitor. 2. Hypertensive urgency, resolved. Patient blood pressures have been within normal range and we will continue to monitor. 3. Hyperlipidemia. Started on atorvastatin 40 mg. 4. Chronic back pain. Continue cyclobenzaprine DVT Prophylaxis: Heparin Disposition: Pending blood cultures TAISHA,Antoine, I+O VS, Antoine, I+O Laboratory Tests 07/23/21 13:00 07/24/21 06:27 Vital Signs Date Time Temp Pulse Resp B/P (MAP) Pulse Ox O2 Delivery O2 Flow Rate FiO2 07/24/21 09:53 135/67 07/24/21 06:00 97.9 71 16 94 Room Air I&O- Last 24 Hours up to 6 AM 07/24/21 06:00 Intake Total 810 ml Output Total 925 ml Balance -115 ml ANGI KIRK DO Jul 24, 2021 12:21
[2021-07-24 14:00] VITALS: BP 151/74
[2021-07-24] MEDS: AMITRIPTYLINE 50 MG TAB PO SCH (21:09)
[2021-07-24 22:00] VITALS: BP 154/64
[2021-07-25 02:17] VITALS: O2SAT 94
[2021-07-25] MEDS: ANEXSIA, NORCO 7.5MG/325MG TABLET(HYDROCODONE/APAP) PO PRN ×3 (03:18→17:42)
[2021-07-25] MEDS: HEPARIN SOD (PORCINE) 5000UNITS/ML 1ML VIAL/SYRINGE SQ SCH ×3 (05:38→21:49)
[2021-07-25] MEDS: LEVOTHYROXINE 100MCG TABLET (0.1MG) PO SCH (05:38)
[2021-07-25 06:00] VITALS: BP 169/79
--- NOTE | 2021-07-25 06:55 | CR ---
CONSULTATION DATE: 07/23/2021 REFERRING PHYSICIAN: Tatyana Wray MD REASON FOR CONSULTATION: Stroke. HISTORY OF PRESENT ILLNESS: Wanda Amanda is a 75-year-old woman who was admitted at [facility] due to 3 or 4 days worth of dizziness, imbalance, left-sided weakness and at times double vision. The patient states that she switched her muscle relaxant from methylcarbamol to cyclobenzaprine on Monday and she felt off balance, dizziness as if she was drunk with double vision and at times slurred speech. She initially thought it was related to her new medication. She cut down the dose of muscle relaxant to half hoping she would feel better. On Monday night, she noted that she had difficulty speaking and swallowing and felt heaviness on the left side of her body. On morning, she noted problem with her vision and at times blurred and double vision. She decided to come to emergency department after she told her daughter about her new symptoms. She denies any head injuries, dysphagia, urinary incontinence, falls, loss of consciousness. She has a history of chronic neck and back pain. She has frequent headaches as well. DIAGNOSTIC STUDIES: MRI scan of brain was reviewed and showed right pontine 2 cm ischemic stroke which is subacute. CTA of head and neck with contrast showed significant bilateral posterior cerebral artery stenosis and mild right middle cerebral artery stenosis. Total cholesterol was 187. LDL was 108. HDL was 51 with normal metabolic profile. PAST MEDICAL HISTORY: Hypertension, dyslipidemia, chronic neck and back pain and patient is status post cervical and lumbosacral laminectomy, hysterectomy, rectocele, cystocele, appendectomy, right carpal tunnel surgery, bilateral knee replacement. SOCIAL HISTORY: She denies smoking, alcohol or illicit drug use. FAMILY HISTORY: Mother had stroke. REVIEW OF SYSTEMS: All systems were reviewed and found to be noncontributory except as mentioned in history of present illness. ALLERGIES: PENICILLIN, CODEINE, ERYTHROMYCIN, HOME MEDICATIONS: 1. Amitriptyline 50 mg p.o. q.h.s. 2. Vitamin C. 3. Biotin. 4. Calcium with vitamin D. 5. Enalapril 5 mg p.o. daily. 6. Lasix 10 mg p.o. b.i.d. 7. Levothyroxine 200 mcg p.o. daily. 8. Naproxen 500 mg p.o. b.i.d. p.r.n. 9. Nystatin cream. 10. Senna/Colace. 11. Flexeril. 12. Vicodin as needed. PHYSICAL EXAMINATION: VITAL SIGNS: Temperature afebrile, pulse 71, respiratory rate 18, blood pressure 179/80, 96% saturation on room air. HEART: Regular rate and rhythm. LUNGS: Clear to auscultation. ABDOMEN: Soft, nontender, nondistended. EXTREMITIES: No pedal edema. MUSCULOSKELETAL: No abnormalities. SKIN: No rash. NEUROLOGICAL: No signs of meningeal irritation. The patient is awake, alert, oriented to place, person and time. Normal speech, comprehension and repetition. Extraocular muscles are intact. No facial weakness. Tongue and uvula are midline. 5/5 strength in right arm and leg. Left-sided strength is 5-/5. There is no pronator drift. She has mild dysmetria on the left side on [id number] testing. Gait is unsteady. ASSESSMENT: 1. Right pontine subacute ischemic stroke. 2. Bilateral posterior cerebral artery stenosis and mild right middle cerebral artery stenosis. 3. Dyslipidemia and hypertension. PLAN: 1. Physical and occupational therapy. 2. Aspirin 81 mg p.o. daily. 3. Plavix 75 mg p.o. daily. 4. Lipitor 40 mg p.o. daily. 5. Echocardiogram. 6. Continue telemetry monitoring. 7. Keep blood pressure below 180/90 in acute-subacute phase and long-term blood pressure target should be below 130/80. MTDD
[2021-07-25 07:06] LABS: HEMATOCRIT 32.7 % (36.0-47.0); HEMOGLOBIN 10.5 g/dl (12.0-15.5); MEAN CORPUSCULAR HEMOGLOBIN 29.1 pg (27.0-33.0); MEAN CORPUSCULAR HGB CONC 32.1 g/dl (32.0-36.5); MEAN CORPUSCULAR VOLUME 90.6 fl (80.0-96.0); PLATELET COUNT, AUTOMATED 303 10^3/uL (150-450); RED BLOOD COUNT 3.61 10^6/uL (4.00-5.40); WHITE BLOOD COUNT 7.3 10^3/uL (4.0-10.0)
[2021-07-25 07:13] LABS: BLOOD UREA NITROGEN 14 MG/DL (7-18); C REACTIVE PROTEIN QUANTITATIV 2.57 MG/DL (0.00-0.30); CALCIUM LEVEL 8.8 MG/DL (8.8-10.2); CARBON DIOXIDE LEVEL 31 MEQ/L (21-32); CHLORIDE LEVEL 103 MEQ/L (98-107); CREATININE FOR GFR 0.78 MG/DL (0.55-1.30); GLOMERULAR FILTRATION RATE > 60.0 (>39); GLUCOSE, FASTING 104 MG/DL (70-100); POTASSIUM SERUM 4.1 MEQ/L (3.5-5.1); SODIUM LEVEL 137 MEQ/L (136-145)
[2021-07-25 07:43] LABS: ERYTHROCYTE SEDIMENTATION RATE 21 mm/hr (0-30)
[2021-07-25] MEDS: DOCUSATE SODIUM 100MG CAPSULE PO SCH ×2 (09:24→21:48)
[2021-07-25] MEDS: ENALAPRIL MALEATE 5 MG TAB PO SCH (09:26)
[2021-07-25] MEDS: ASPIRIN 81MG ENTERIC TABLET PO SCH (09:26)
[2021-07-25] MEDS: SENOKOT S TAB PO SCH (09:26)
[2021-07-25] MEDS: VITAMIN D 1,000 INTERNATIONAL UNITS TABLET PO SCH (09:26)
[2021-07-25] MEDS: [UNRECOGNIZED DRUG - OTHER] PO SCH (09:27)
[2021-07-25] MEDS: amLODIPine 5 MG TAB PO SCH (09:27)
[2021-07-25] MEDS: CALCIUM/VITAMIN D 500 MG TAB PO SCH (09:27)
[2021-07-25] MEDS: TAMSULOSIN 0.4 MG CAP PO SCH (09:27)
[2021-07-25] MEDS: FUROSEMIDE 20 MG TAB PO SCH ×2 (09:27→17:41)
[2021-07-25] MEDS: ATORVASTATIN 20 MG TAB PO SCH (09:27)
[2021-07-25] MEDS: CYCLOBENZAPRINE 10MG TABLET PO PRN ×2 (09:50→17:41)
--- NOTE | 2021-07-25 11:17 | IPNPDOC ---
Text Note Date of Service The patient was seen on 07/25/21. NOTE Subjective: Patient is a 75-year-old female presented the emergency department for 2 days of dizziness, left-sided weakness, and feeling "off balance". Patient is feeling better today although she does complain of some mild dizziness. Patient had echocardiogram which could not rule out sessile vegetation on the aortic valve. Blood cultures have been ordered and are pendi ng at this time. She is otherwise feeling well and denies any fevers or chills. Review of systems: General: Patient denies fevers HEENT: Patient denies headaches Cardiovascular: Patient denies chest pain Respiratory: Patient denies shortness of breath, cough GI: Patient denies abdominal pain, nausea, vomiting, diarrhea : Patient denies increased frequency or pain with urination Extremities: Patient denies swelling or pain in extremities Neurological: Patient denies numbness or tingling in legs Physical exam: Vitals: See below General: Alert and oriented female patient who was walking around her room when I walked in. Patient did not appear to be in any acute distress. HEENT: Normocephalic, atraumatic, moist mucous membranes. Neck: No lymphadenopathy or thyromegaly Cardiac: Regular rate and rhythm, no murmurs, normal S1, normal S2 Pulm: Clear to auscultation bilaterally. No wheezes, rhonchi, rales Abd: Nondistended, nontender to palpation, normal bowel sounds Ext: No edema bilateral lower extremities Neuro: Cranial nerves III through XII intact bilaterally, [id number] testing within normal limits bilaterally, patient had equal strength in the upper and lower extremities bilaterally. Patient reported equal sensation to light touch in upper and lower extremities bilaterally. Labs: See below Imaging: No new imaging has been performed Assessment/plan: 75-year-old female present to the emergency department with dizziness with diagnosed with an acute/subacute pontine CVA. 1. Subacute CVA of the jj. MRI showed acute/early subacute ischemic infarct in the right jj. Dr. Martinez of neurology has seen the patient. Continue with aspirin, Plavix, statin therapy. Because of possibility of sessile vegetation on aortic valve, patient will remain in the hospital for blood cultures are negative at least x48 hours. ESR and CRP have improved. 2. Hypertensive urgency, resolved. Patient's blood pressure is within normal range we will continue to monitor. Patient was started on amlodipine at this time. 3. Hyperlipidemia. Started on atorvastatin 40 mg. 4. Chronic back pain. Continue Flexeril DVT Prophylaxis: Heparin Disposition: Pending blood cultures TAISHA,Antoine, I+O VS, Antoine, I+O Laboratory Tests 07/25/21 06:29 Vital Signs Date Time Temp Pulse Resp B/P (MAP) Pulse Ox O2 Delivery O2 Flow Rate FiO2 07/25/21 10:36 18 Room Air 07/25/21 09:26 143/75 07/25/21 06:00 97.5 77 96 I&O- Last 24 Hours up to 6 AM 07/25/21 06:00 Intake Total 1050 ml Output Total 1000 ml Balance 50 ml ANGI KIRK DO Jul 25, 2021 11:17
[2021-07-25 11:38] VITALS: O2SAT 92
[2021-07-25 14:00] VITALS: BP 149/66
[2021-07-25] MEDS: AMITRIPTYLINE 50 MG TAB PO SCH (21:48)
[2021-07-25 22:00] VITALS: BP 147/76
[2021-07-26] MEDS: CYCLOBENZAPRINE 10MG TABLET PO PRN ×2 (01:19→06:45)
[2021-07-26] MEDS: ANEXSIA, NORCO 7.5MG/325MG TABLET(HYDROCODONE/APAP) PO PRN ×2 (01:20→09:21)
[2021-07-26 03:26] VITALS: O2SAT 94
[2021-07-26] MEDS: LEVOTHYROXINE 100MCG TABLET (0.1MG) PO SCH (05:58)
[2021-07-26 06:00] VITALS: BP 129/68
[2021-07-26] MEDS: HEPARIN SOD (PORCINE) 5000UNITS/ML 1ML VIAL/SYRINGE SQ SCH (06:00)
[2021-07-26 06:22] LABS: HEMATOCRIT 32.8 % (36.0-47.0); HEMOGLOBIN 10.7 g/dl (12.0-15.5); MEAN CORPUSCULAR HEMOGLOBIN 29.6 pg (27.0-33.0); MEAN CORPUSCULAR HGB CONC 32.6 g/dl (32.0-36.5); MEAN CORPUSCULAR VOLUME 90.6 fl (80.0-96.0); PLATELET COUNT, AUTOMATED 313 10^3/uL (150-450); RED BLOOD COUNT 3.62 10^6/uL (4.00-5.40); WHITE BLOOD COUNT 7.3 10^3/uL (4.0-10.0)
[2021-07-26 06:47] LABS: BLOOD UREA NITROGEN 16 MG/DL (7-18); CALCIUM LEVEL 8.7 MG/DL (8.8-10.2); CARBON DIOXIDE LEVEL 28 MEQ/L (21-32); CHLORIDE LEVEL 104 MEQ/L (98-107); CREATININE FOR GFR 0.79 MG/DL (0.55-1.30); GLOMERULAR FILTRATION RATE > 60.0 (>39); GLUCOSE, FASTING 103 MG/DL (70-100); SODIUM LEVEL 138 MEQ/L (136-145)
[2021-07-26] MEDS ORDERED: CLOP75TA2 PO (08:32)
[2021-07-26] MEDS ORDERED: AMLO1TAB24 PO (08:32)
[2021-07-26] MEDS ORDERED: ATOR1TAB21 PO (08:32)
[2021-07-26] MEDS ORDERED: ASPI-551 PO (08:32)
[2021-07-26] MEDS: [UNRECOGNIZED DRUG - OTHER] PO SCH (09:20)
[2021-07-26] MEDS: DOCUSATE SODIUM 100MG CAPSULE PO SCH (09:21)
[2021-07-26] MEDS: ASPIRIN 81MG ENTERIC TABLET PO SCH (09:21)
[2021-07-26] MEDS: SENOKOT S TAB PO SCH (09:21)
[2021-07-26] MEDS: FUROSEMIDE 20 MG TAB PO SCH (09:21)
[2021-07-26] MEDS: ATORVASTATIN 20 MG TAB PO SCH (09:22)
[2021-07-26] MEDS: VITAMIN D 1,000 INTERNATIONAL UNITS TABLET PO SCH (09:22)
[2021-07-26] MEDS: TAMSULOSIN 0.4 MG CAP PO SCH (09:22)
[2021-07-26] MEDS: CALCIUM/VITAMIN D 500 MG TAB PO SCH (09:22)
[2021-07-26 09:25] VITALS: BP 150/76
[2021-07-26] MEDS: ENALAPRIL MALEATE 5 MG TAB PO SCH (09:25)
[2021-07-26] MEDS: amLODIPine 5 MG TAB PO SCH (09:25)
--- NOTE | 2021-07-26 11:48 | DS.PDOC ---
Discharge Summary General Date of Admission Jul 23, 2021 at 01:03 Date of Discharge 07/26/2021 Primary Care Physician: Jr Ashby Collins Attending Physician: ANGI KIRK DO Specialist/Consultants Involve: GINA DEY MD Discharge Summary PROCEDURES PERFORMED DURING STAY: None. ADMITTING DIAGNOSES: 1. Subacute CVA of jj. 2. Hypertensive urgency 3. Hyperlipidemia 4. Chronic back pain DISCHARGE DIAGNOSES: 1. Subacute CVA of jj. 2. Hypertensive urgency, resolved 3. Hypertension 4. Hyperlipidemia 5. Chronic back pain 6. Dizziness secondary to CVA of jj, improved COMPLICATIONS/CHIEF COMPLAINT: Cerebrovascular Accident Of Pontine Structure. HISTORY OF PRESENT ILLNESS: Patient is a 75-year-old female who presented to the emergency department for 2 days of dizziness, left-sided weakness, and "feeling off balance". Patient states that she switched her muscle relaxer from cyclobenzaprine to methocarbamol on Monday, and noticed that she felt off balance, dizzy, and "drunk". She thought this was a side effect of the new medications decided to take a half dose of methocarbamol instead of a full dose in hopes that she would feel dizzy with the low-dose. On Monday night, she noticed that she was having difficulty speaking and swallowing as well as heaviness on the left side of her body. She reports weakness of her left arm and leg. On morning, she noticed the vision in her left eye was blurred. She decided to present to the emergency department after she told her daughter about the new symptoms and they both agreed she should be evaluated. She denies facial droop, tenderness, loss of consciousness, chest pain, or palpitations. She admits to having new onset headache located around her forehead. In the ED she was found to have a 2 cm subacute pontine CVA and was given IV labetalol HOSPITAL COURSE: Patient's blood pressure improved with treatment. Patient continued to have some dizziness throughout the first day of her hospitalization. Patient worked with physical therapy and did improve. Patient had echocardiogram done that was reported as could not rule out sessile vegetation on the aortic valve. Decision was made to keep the patient while blood cultures and ESR and CRP were trended. Blood cultures were negative x48 hours. ESR and CRP were mildly elevated but did improve throughout the patient's hospitalization. Patient denied any chest pain, fevers, or chills. Patient's dizziness did improve and patient work with physical therapy and was cleared to be safe to go home. Patient did request a home health referral which was signed. Patient was doing well and the decision was made to discharge the patient home with home health services on 07/26/2021. Patient was seen by neurology who recommended starting patient on aspirin, Plavix, and statin therapy. Patient's blood sugar pressure did remain elevated on her home medications and amlodipine 5 mg daily was added. Patient's blood pressure did come under control once amlodipine was started. Patient was discharged home and her new medications were sent to her pharmacy. DISCHARGE MEDICATIONS: Please see below. ALLERGIES: Please see below. PHYSICAL EXAMINATION ON DISCHARGE: VITAL SIGNS: Please see below. General: Alert and oriented female patient who was sitting in the bed when I walked in. Patient did not appear to be in any acute distress. HEENT: Normocephalic, atraumatic, moist mucous membranes. Neck: No lymphadenopathy or thyromegaly Cardiac: Regular rate and rhythm, no murmurs, normal S1, normal S2 Pulm: Clear to auscultation bilaterally. No wheezes, rhonchi, rales Abd: Nondistended, nontender to palpation, normal bowel sounds Ext: No edema bilateral lower extremities Neuro: Cranial nerves III through XII intact bilaterally, [id number] testing within normal limits bilaterally, patient had equal strength in the upper and lower extremities bilaterally. Patient reported equal sensation to light touch in upper and lower extremities bilaterally. LABORATORY DATA: Please see below. IMAGING: CT of the head performed without contrast on 07/22/2021 was reported to show a low-attenuation focus in the central jj consistent with chronic infarct. There is mild parenchymal volume loss. Mild white matter changes are demonstrated consistent with chronic age-related small vessel ischemic changes. MRI of the brain performed without contrast on 07/22/2021 was reported to show us to centimeter acute/early subacute ischemic infarct in the right jj. MRA brain without contrast performed on 07/22/2021 is reported to show no large vessel occlusion. Severe left [employer]ER P2 stenosis. Moderate to severe right [employer] AIDE TE[employer]ER P2 stenosis. Chest x-ray performed on 07/22/2021 was reported to show negative chest. CT angio of the head performed with contrast on 07/23/2021 was reported to show stenosis of the proximal posterior cerebral arteries bilaterally along the anterior lateral aspects of the cerebral peduncles. Mild origin stenosis of the right M1 segment. Otherwise negative CTA head. No additional stenosis and no occlusion. CT angio of the neck performed on 07/23/2021 was reported to show negative CTA neck. No significant stenosis no occlusion. Echocardiogram performed on 07/23/2021 was reported to show normal sinus rhythm without interventricular conduction disturbance. Borderline left ventricular hy pertrophy with hypokinetic wall motion. Mildly dilated left atrium, appreciated best from the apical projections with grade 1 left ventricular diastolic dysfunction current estimated mean left atrial pressure is upper limits of normal to slightly increased. Normal heart chamber sizes and motion with Doppler sign of borderline to mild pulmonary hypertension. Normal IVC size and collapse. Normal aortic dimensions. Moderate aortic valvular sclerosis with no more than marginal aortic stenosis and no apparent insufficiency. Mild degenerative changes of the mitral valvular apparatus without inflow tract obstruction and only trace insufficiency. Normal-appearing tricuspid valve with only trace insufficiency. No apparent intracardiac mass but could not rule out sessile vegetation on the aortic valve. No pericardial effusion. PROGNOSIS: Good ACTIVITY: As tolerated. DIET: Regular DISCHARGE PLAN: Discharge home with home health service DISPOSITION: 06 Home Health Service. DISCHARGE INSTRUCTIONS: 1. Follow-up with primary care provider within 3 to 5 days discharge. 2. Follow-up with neurology within 1 to 2 weeks of discharge 3. Start taking aspirin, Plavix, atorvastatin, and amlodipine on a daily basis. Follow-up with your primary care provider for further instructions about c ontinuing these medications. 4. Continue work with home health physical therapy in order to improved symptoms of her stroke 5. Return to the emergency department if symptoms worsen ITEMS TO FOLLOWUP ON ON OUTPATIENT: 1. Blood pressure management. DISCHARGE CONDITION: Stable. TIME SPENT ON DISCHARGE: 35 minutes. Vital Signs/I&Os Vital Signs Date Time Temp Pulse Resp B/P (MAP) Pulse Ox O2 Delivery O2 Flow Rate FiO2 07/26/21 09:25 82 150/76 07/26/21 09:21 20 07/26/21 06:00 97.1 96 Room Air I&O- Last 24 Hours up to 6 AM 07/26/21 06:00 Intake Total 760 ml Output Total 1000 ml Balance -240 ml Laboratory Data Labs 24H Laboratory Tests 2 07/26/21 05:44: Nucleated Red Blood Cells % (auto) 0.0, Anion Gap 6L, Glomerular Filtration Rate > 60.0, Calcium Level 8.7L CBC/BMP Laboratory Tests 07/26/21 05:44 Microbiology Microbiology 07/23/21 Blood Culture - Preliminary, Resulted No Growth after 48 hours. All Specime... 07/23/21 Blood Culture - Preliminary, Resulted No Growth after 48 hours. All Specime... Discharge Medications Scheduled Amitriptyline HCl (Amitriptyline HCl) 50 Mg Tablet, 50 MG PO QHS, (Reported) Amlodipine Besylate (Amlodipine Besylate) 5 Mg Tablet, 5 MG PO DAILY Ascorbic Acid (Vitamin C) 500 Mg Tablet, 500 MG PO DAILY, (Reported) Aspirin (Aspirin EC) 81 Mg Tablet.dr, 81 MG PO DAILY Atorvastatin Calcium (Atorvastatin Calcium) 20 Mg Tablet, 40 MG PO DAILY Biotin (Biotin) 10,000 Mcg Capsule, 10 MG PO DAILY, (Reported) Calcium Carbonate/Vitamin D3 (Calcium 500-Vit D3 200 Tablet) 1 Each Tablet, 1 TAB PO DAILY, (Reported) Cholecalciferol (Vitamin D3) (Vitamin D3) 1,000 Unit Tablet, 1,000 UNITS PO DAILY, (Reported) Clopidogrel Bisulfate (Clopidogrel) 75 Mg Tablet, 1 TAB PO DAILY Docusate Sodium (Docusate Sodium) 100 Mg Capsule, 200 MG PO DAILY, (Reported) Enalapril Maleate (Enalapril Maleate) 5 Mg Tablet, 5 MG PO DAILY, (Reported) Furosemide (Furosemide) 20 Mg Tablet, 10 MG PO BID, (Reported) Garlic (Garlic) 500 Mg Capsule, 1,000 MG PO DAILY, (Reported) Levothyroxine Sodium (Synthroid) 200 Mcg Tablet, 200 MCG PO DAILY, (Reported) Multivitamins (Thera M Plus Tablet) 1 Each Tablet, 1 TAB PO DAILY, (Reported) Nystatin/Triamcin (Nystatin-Triamcinolone Cream) 15 Gm Cream..g., 1 DOSE EXT ASDIRECTED, (Reported) APPLY SMALL AMOUNT TO GROIN AFTER EVERY URINATION Sennosides/Docusate Sodium (Senna Plus Tablet) 1 Each Tablet, 2 TAB PO DAILY, (Reported) [Max Strength Neuro ] , 2 CAP PO BID, (Reported) Scheduled PRN Cyclobenzaprine HCl (Cyclobenzaprine HCl) 10 Mg Tablet, 10 MG PO QID PRN for MUSCLE SPASMS, (Reported) Hydrocodone/Acetaminophen (Hydrocodone-Acetamin 7.5-325) 1 Each Tablet, 2 TAB PO Q6H PRN for MODERATE/SEVERE PAIN (PS 5-10), (Reported) Allergies Coded Allergies: Influenza Virus Vaccines (Verified Allergy, Severe, paralized for 3 days, 07/23/21) amoxicillin (Verified Allergy, Intermediate, rash, 02/19/21) codeine (Verified Allergy, Intermediate, vomiting, 02/19/21) erythromycin base (Verified Allergy, Unknown, 07/23/21) ANGI KIRK DO Jul 26, 2021 11:48
== END 2021-07-26 11:25 | disposition home health service (06) | DRG 66 ==
LOC: M ED 18:02 → M ED INP 07-23 01:03 → ENRESERV 07-23 15:09 → M MSPAV 07-23 16:30
PROVIDERS: ADMIT Internal Medicine; ATTEND Family Medicine
DX: I63.9 Cerebral infarction, unspecified (principal); I16.0 Hypertensive urgency; E78.5 Hyperlipidemia, unspecified; M54.50 Low back pain, unspecified; Z79.899 Other long term (current) drug therapy; Z79.82 Long term (current) use of aspirin; Z88.5 Allergy status to narcotic agent; Z88.1 Allergy status to other antibiotic agents; Z88.0 Allergy status to penicillin; Z88.7 Allergy status to serum and vaccine

== ENCOUNTER → 2021-08-06 | Outpatient (REF) | payer MEDICARE ==
[~2021-08-06] MED LIST changes: +AMLO1TAB24 PO; +ASPI-551 PO; +ATOR1TAB21 PO; +C 50TAB PO; +CLOP75TA2 PO; +CVS10CAP PO; +CYCL10TA5 PO; +D31000TA2 PO; +DOCU100C16 PO; +ENAL5TA PO; +NYST1CRE15 EXT; +OYST500T91 PO; +SENN-52 PO; +VITMTA PO; +[UNRECOGNIZED DRUG - OTHER] PO
== END ==
LOC: M LAB REF 16:31
PROVIDERS: ATTEND Physician Assistant Medical
DX: N39.0 Urinary tract infection, site not specified (principal)

== ENCOUNTER → 2021-08-17 | Outpatient (REF) | payer MEDICARE ==
[2021-08-17 17:54] LABS: APPEARANCE, URINE TURBID (CLEAR); BACTERIA, URINE AUTO 1+ (NEGATIVE); BILIRUBIN, URINE AUTO NEGATIVE (NEGATIVE); BLOOD, URINE BLOOD 1+ (NEGATIVE); COLOR, URINE YELLOW (YELLOW); GLUCOSE, URINE (UA) AUTO NEGATIVE (NEGATIVE); KETONE, URINE AUTO NEGATIVE (NEGATIVE); LEUKOCYTE ESTERASE, URINE AUTO 3+ (NEGATIVE); NITRITE, URINE AUTO POSITIVE (NEGATIVE); PROTEIN, URINE AUTO 1+ mg/dL (NEGATIVE); RBC, URINE AUTO 12 /HPF (0-3); SPECIFIC GRAVITY URINE AUTO 1.018 (1.002-1.035); SQUAMOUS EPITHELIAL CELL UR AU 0 /HPF (0-6); UROBILINOGEN, URINE AUTO 0.2 mg/dL (0.0-2.0); WBC, URINE AUTO TNTC /HPF (0-3)
== END ==
LOC: M SMT 16:55
PROVIDERS: ATTEND Urology
DX: N39.3 Stress incontinence (female) (male) (principal)

== ENCOUNTER → 2021-10-19 | Outpatient (REF) | payer MEDICARE ==
[~2021-10-19] MED LIST changes: +CYCL10TA20 PO; -CYCL10TA5 PO
[2021-10-19 17:29] LABS: APPEARANCE, URINE CLEAR (CLEAR); BACTERIA, URINE AUTO NEGATIVE (NEGATIVE); BILIRUBIN, URINE AUTO NEGATIVE (NEGATIVE); BLOOD, URINE BLOOD NEGATIVE (NEGATIVE); COLOR, URINE YELLOW (YELLOW); GLUCOSE, URINE (UA) AUTO NEGATIVE (NEGATIVE); KETONE, URINE AUTO NEGATIVE (NEGATIVE); LEUKOCYTE ESTERASE, URINE AUTO NEGATIVE (NEGATIVE); NITRITE, URINE AUTO NEGATIVE (NEGATIVE); PROTEIN, URINE AUTO NEGATIVE (NEGATIVE); RBC, URINE AUTO 3 /HPF (0-3); SPECIFIC GRAVITY URINE AUTO 1.017 (1.002-1.035); SQUAMOUS EPITHELIAL CELL UR AU 0 /HPF (0-6); UROBILINOGEN, URINE AUTO 0.2 mg/dL (0.0-2.0); WBC, URINE AUTO 2 /HPF (0-3)
== END ==
LOC: M SMT 16:39
PROVIDERS: ATTEND Urology
DX: N30.00 Acute cystitis without hematuria (principal)

== ENCOUNTER → 2021-11-12 | Outpatient (REF) | payer MEDICARE ==
[2021-11-12 13:11] LABS: APPEARANCE, URINE CLEAR (CLEAR); BACTERIA, URINE AUTO NEGATIVE (NEGATIVE); BILIRUBIN, URINE AUTO NEGATIVE (NEGATIVE); BLOOD, URINE BLOOD 1+ (NEGATIVE); COLOR, URINE YELLOW (YELLOW); GLUCOSE, URINE (UA) AUTO NEGATIVE (NEGATIVE); KETONE, URINE AUTO TRACE mg/dL (NEGATIVE); LEUKOCYTE ESTERASE, URINE AUTO NEGATIVE (NEGATIVE); NITRITE, URINE AUTO NEGATIVE (NEGATIVE); PROTEIN, URINE AUTO NEGATIVE (NEGATIVE); RBC, URINE AUTO 1 /HPF (0-3); SPECIFIC GRAVITY URINE AUTO 1.011 (1.002-1.035); SQUAMOUS EPITHELIAL CELL UR AU 0 /HPF (0-6); UROBILINOGEN, URINE AUTO 0.2 mg/dL (0.0-2.0); WBC, URINE AUTO 1 /HPF (0-3)
== END ==
LOC: M SMT 12:56
PROVIDERS: ATTEND Urology
DX: Z87.440 Personal history of urinary (tract) infections (principal); Z79.899 Other long term (current) drug therapy

== ENCOUNTER → 2022-01-05 | Outpatient (CLI) | payer MEDICARE ==
[~2022-01-05] MED LIST changes: -D31000TA2 PO; +ISOVUE-370 76% 100ML VIAL As Ordered ONE; +VITA100093 PO
== END ==
LOC: M RAD 14:10
PROVIDERS: ATTEND Urology
DX: N20.0 Calculus of kidney (principal); K76.0 Fatty (change of) liver, not elsewhere classified; M51.36 Other intervertebral disc degeneration, lumbar region; R59.9 Enlarged lymph nodes, unspecified; I25.10 Atherosclerotic heart disease of native coronary artery without angina pectoris
CPT/HCPCS: 74178; Q9967

== ENCOUNTER → 2022-02-14 | Outpatient (CLI) | payer MEDICARE ==
[~2022-02-14] MED LIST changes: -ISOVUE-370 76% 100ML VIAL As Ordered ONE
[2022-02-14 14:46] LABS: BASO % 0.6 % (0.0-1.0); EOS # 0.1 10^3/uL (0.0-0.5); EOS % 1.9 % (0.0-3.0); HEMATOCRIT 37.1 % (36.0-47.0); HEMOGLOBIN 12.1 g/dl (12.0-15.5); LYMPH # 1.7 10^3/uL (1.5-5.0); LYMPH % 24.9 % (24.0-44.0); MEAN CORPUSCULAR HEMOGLOBIN 27.3 pg (27.0-33.0); MEAN CORPUSCULAR HGB CONC 32.6 g/dl (32.0-36.5); MEAN CORPUSCULAR VOLUME 83.7 fl (80.0-96.0); MONO # 0.5 10^3/uL (0.0-0.8); MONO % 7.3 % (2.0-8.0); NEUTROPHILS # 4.5 10^3/uL (1.5-8.5); NEUTROPHILS % 64.9 % (36.0-66.0); PLATELET COUNT, AUTOMATED 360 10^3/uL (150-450); RED BLOOD COUNT 4.43 10^6/uL (4.00-5.40); WHITE BLOOD COUNT 6.9 10^3/uL (4.0-10.0)
[2022-02-14 14:58] LABS: HEMOGLOBIN A1c 7.3 %
[2022-02-14 15:10] LABS: ALBUMIN 3.9 GM/DL (3.2-5.2); ALT/SGPT 22 U/L (12-78); BILIRUBIN,TOTAL 0.4 MG/DL (0.2-1.0); BLOOD UREA NITROGEN 13 MG/DL (7-18); CALCIUM LEVEL 9.8 MG/DL (8.8-10.2); CARBON DIOXIDE LEVEL 27 MEQ/L (21-32); CHLORIDE LEVEL 105 MEQ/L (98-107); CREATININE FOR GFR 0.64 MG/DL (0.55-1.30); GLOMERULAR FILTRATION RATE > 60.0 (>39); GLUCOSE, FASTING 155 MG/DL (70-100); POTASSIUM SERUM 4.4 MEQ/L (3.5-5.1); RHEUMATOID FACTOR QUANT < 10.0 IU/ML (<15.0); SODIUM LEVEL 138 MEQ/L (136-145); THYROID STIMULATING HORMONE 0.212 uIU/ML (0.358-3.740); TOTAL PROTEIN 7.5 GM/DL (6.4-8.2)
[2022-02-14 15:11] LABS: VITAMIN B12 LEVEL 510 PG/ML
[2022-02-14 15:19] LABS: ERYTHROCYTE SEDIMENTATION RATE 23 mm/hr (0-30)
[2022-02-14 15:33] LABS: FOLATE 15.3 NG/ML
[2022-02-15 13:53] LABS: ALBUMIN % 57.3 % (55.8-66.1); ALPHA-1-GLOBULINS 0.38 GM/DL (0.17-0.41); ALPHA-2-GLOBULINS 0.97 GM/DL (0.42-0.99); ALPHA-2-GLOBULINS % 12.9 % (7.1-11.8); BETA-1-GLOBULINS 0.47 GM/DL (0.28-0.60); BETA-1-GLOBULINS % 6.3 % (4.7-7.2); BETA-2-GLOBULINS 0.45 GM/DL (0.19-0.55); GAMMA GLOBULIN % 12.5 % (11.1-18.8); GAMMA GLOBULINS 0.94 GM/DL (0.65-1.58)
== END ==
LOC: M LAB 13:17
PROVIDERS: ATTEND Psychiatry & Neurology Neurology
DX: G62.9 Polyneuropathy, unspecified (principal); E07.9 Disorder of thyroid, unspecified

== ENCOUNTER → 2022-03-02 | Outpatient (CLI) | payer MEDICARE | LOC: M LAB 16:44 | PROVIDERS: ATTEND Physician Assistant Medical | DX: M79.672 Pain in left foot (principal); M79.671 Pain in right foot ==

== ENCOUNTER → 2022-05-08 | Outpatient (CLI) | payer MEDICARE ==
[2022-05-08 17:22] LABS: HEMATOCRIT 38.8 % (36.0-47.0); HEMOGLOBIN 12.8 g/dl (12.0-15.5); MEAN CORPUSCULAR HEMOGLOBIN 27.6 pg (27.0-33.0); MEAN CORPUSCULAR VOLUME 83.6 fl (80.0-96.0); PLATELET COUNT, AUTOMATED 320 10^3/uL (150-450); RED BLOOD COUNT 4.64 10^6/uL (4.00-5.40)
[2022-05-08 17:45] LABS: HEMOGLOBIN A1c 7.6 %
[2022-05-08 18:10] LABS: ALBUMIN 3.6 GM/DL (3.2-5.2); ALT/SGPT 31 U/L (12-78); BILIRUBIN,TOTAL 0.5 MG/DL (0.2-1.0); BLOOD UREA NITROGEN 16 MG/DL (7-18); C REACTIVE PROTEIN QUANTITATIV 0.61 MG/DL (0.00-0.30); CALCIUM LEVEL 9.4 MG/DL (8.8-10.2); CARBON DIOXIDE LEVEL 29 MEQ/L (21-32); CHLORIDE LEVEL 104 MEQ/L (98-107); CHOLESTEROL LEVEL 139 MG/DL (<200); CHOLESTEROL RISK RATIO 2.622 (<5); FREE T4 1.46 NG/DL (0.76-1.46); GLOMERULAR FILTRATION RATE > 60.0 (>39); GLUCOSE, FASTING 135 MG/DL (70-100); HDL CHOLESTEROL 53 MG/DL (>40); LDL CHOLESTEROL 49 MG/DL (<100); NON-HDL-C 86 MG/DL; POTASSIUM SERUM 4.5 MEQ/L (3.5-5.1); SODIUM LEVEL 137 MEQ/L (136-145); THYROID STIMULATING HORMONE 0.149 uIU/ML (0.358-3.740); TOTAL PROTEIN 7.2 GM/DL (6.4-8.2); TRIGLYCERIDES LEVEL 186 MG/DL (<150)
[2022-05-08 18:16] LABS: CREATININE, URINE 56.1 MG/DL; MALB URINE SIEMENS 8.8 MG/L; MAU/CREAT RATIO 15.6 MCG/MG (0.0-30.0)
[2022-05-09 07:26] LABS: TOTAL 25(OH) VITAMIN D 34.2 NG/ML (30.0-100.0); VITAMIN B12 LEVEL 665 PG/ML (247-911)
== END ==
LOC: M LAB 16:29
PROVIDERS: ATTEND Internal Medicine Hematology
DX: I10 Essential (primary) hypertension (principal); Z79.899 Other long term (current) drug therapy

== ENCOUNTER → 2022-05-17 | Outpatient (CLI) | payer MEDICARE | LOC: M PAIN 13:30 | PROVIDERS: ATTEND Nurse Practitioner Family | DX: M96.1 Postlaminectomy syndrome, not elsewhere classified (principal); G89.29 Other chronic pain; I10 Essential (primary) hypertension; E03.9 Hypothyroidism, unspecified; Z87.891 Personal history of nicotine dependence; Z88.0 Allergy status to penicillin; Z88.1 Allergy status to other antibiotic agents; Z88.7 Allergy status to serum and vaccine; Z88.8 Allergy status to other drugs, medicaments and biological substances; Z91.018 Allergy to other foods; Z79.82 Long term (current) use of aspirin; Z79.890 Hormone replacement therapy; Z79.899 Other long term (current) drug therapy ==

== ENCOUNTER → 2022-07-08 | Outpatient (CLI) | payer MEDICARE ==
[2022-07-08 16:25] LABS: BASO % 0.4 % (0.0-1.0); EOS # 0.2 10^3/uL (0.0-0.5); EOS % 1.8 % (0.0-3.0); HEMATOCRIT 36.5 % (36.0-47.0); HEMOGLOBIN 11.9 g/dl (12.0-15.5); LYMPH # 1.9 10^3/uL (1.5-5.0); LYMPH % 22.9 % (24.0-44.0); MEAN CORPUSCULAR HEMOGLOBIN 27.5 pg (27.0-33.0); MEAN CORPUSCULAR HGB CONC 32.6 g/dl (32.0-36.5); MEAN CORPUSCULAR VOLUME 84.3 fl (80.0-96.0); MONO # 0.5 10^3/uL (0.0-0.8); MONO % 5.6 % (2.0-8.0); NEUTROPHILS # 5.8 10^3/uL (1.5-8.5); NEUTROPHILS % 68.8 % (36.0-66.0); PLATELET COUNT, AUTOMATED 392 10^3/uL (150-450); RED BLOOD COUNT 4.33 10^6/uL (4.00-5.40); WHITE BLOOD COUNT 8.4 10^3/uL (4.0-10.0)
[2022-07-08 16:55] LABS: ERYTHROCYTE SEDIMENTATION RATE 40 mm/hr (0-30)
[2022-07-08 17:33] LABS: ALBUMIN 3.7 GM/DL (3.2-5.2); ALT/SGPT 20 U/L (12-78); BILIRUBIN,TOTAL 0.4 MG/DL (0.2-1.0); BLOOD UREA NITROGEN 16 MG/DL (7-18); CALCIUM LEVEL 9.3 MG/DL (8.8-10.2); CARBON DIOXIDE LEVEL 28 MEQ/L (21-32); CHLORIDE LEVEL 102 MEQ/L (98-107); CREATININE FOR GFR 0.68 MG/DL (0.55-1.30); GLOMERULAR FILTRATION RATE > 60.0 (>39); GLUCOSE, FASTING 129 MG/DL (70-100); POTASSIUM SERUM 4.3 MEQ/L (3.5-5.1); RHEUMATOID FACTOR QUANT < 10.0 IU/ML (<15.0); SODIUM LEVEL 135 MEQ/L (136-145); TOTAL PROTEIN 7.4 GM/DL (6.4-8.2)
[2022-07-08 19:13] LABS: HEMOGLOBIN A1c 7.3 %
[2022-07-11 10:30] LABS: VITAMIN B12 LEVEL 474 PG/ML (247-911)
[2022-07-12 12:49] LABS: ALBUMIN % 55.1 % (55.8-66.1); ALPHA-1-GLOBULIN % 5.7 % (2.9-4.9); ALPHA-2-GLOBULINS % 15.1 % (7.1-11.8); BETA-1-GLOBULINS % 5.8 % (4.7-7.2); BETA-2-GLOBULINS % 6.1 % (3.2-6.5); GAMMA GLOBULIN % 12.2 % (11.1-18.8)
[2022-07-12 12:50] LABS: ALBUMIN 4.08 GM/DL (3.29-5.55); ALPHA-1-GLOBULINS 0.42 GM/DL (0.17-0.41); ALPHA-2-GLOBULINS 1.12 GM/DL (0.42-0.99); BETA-1-GLOBULINS 0.43 GM/DL (0.28-0.60); BETA-2-GLOBULINS 0.45 GM/DL (0.19-0.55); TOTAL PROTEIN 7.4 GM/DL (6.4-8.2)
[2022-07-14 11:09] LABS: ANTINUCLEAR ANTIBODIES DIRECT Negative (Negative); VITAMIN B1 LEVEL WHOLE BLOOD 279.4 nmol/L (66.5-200.0); VITAMIN B6,PYRIDOXAL PHOSPHATE 12.4 ug/L (3.4-65.2); VITAMIN E(ALPHA TOCOPHEROL) 11.1 mg/L (9.0-29.0); VITAMIN E(GAMMA TOCOPHEROL) 0.6 mg/L (0.5-4.9)
== END ==
LOC: M LAB 15:38
PROVIDERS: ATTEND Psychiatry & Neurology Neurology
DX: G62.9 Polyneuropathy, unspecified (principal); E07.9 Disorder of thyroid, unspecified

== ENCOUNTER → 2022-07-08 | Outpatient (CLI) | payer MEDICARE | LOC: M LAB 15:36 | PROVIDERS: ATTEND Internal Medicine Hematology | DX: E03.9 Hypothyroidism, unspecified (principal) ==

== ENCOUNTER → 2022-07-11 | Outpatient (REF) | payer MEDICARE ==
[2022-07-11 20:24] LABS: APPEARANCE, URINE MANUAL HAZY (CLEAR); COLOR, URINE MANUAL YELLOW (YELLOW)
[2022-07-11 20:25] LABS: BILIRUBIN, URINE MANUAL NEGATIVE (NEGATIVE); BLOOD URINE MANUAL POSITIVE (NEGATIVE); GLUCOSE, URINE (UA) MANUAL NEGATIVE (NEGATIVE); KETONE, URINE MANUAL NEGATIVE (NEGATIVE); LEUKOCYTE ESTERASE, URINE MAN POSITIVE (NEGATIVE); NITRITE, URINE MANUAL NEGATIVE (NEGATIVE); PROTEIN, URINE MANUAL NEGATIVE (NEGATIVE); SPECIFIC GRAVITY,URINE MANUAL 1.015 (1.002-1.035); UROBILINOGEN, URINE MANUAL NORMAL (NORMAL)
[2022-07-11 21:19] LABS: BACTERIA, URINE SMALL AMOUNT; HYALINE CAST, URINE NONE SEEN /lpf (0-1); SQUAMOUS EPITHELIAL CELL URINE SMALL AMOUNT /hpf (SMALL AMT); WBC, URINE TNTC /hpf (0-3)
== END ==
LOC: M SFHCPLAZ 17:21
PROVIDERS: ATTEND Internal Medicine Hematology
DX: N30.01 Acute cystitis with hematuria (principal)

== ENCOUNTER → 2022-07-27 | Outpatient (REF) | payer MEDICARE ==
[2022-07-27 18:44] LABS: APPEARANCE, URINE MANUAL CLEAR (CLEAR); COLOR, URINE MANUAL YELLOW (YELLOW)
[2022-07-27 18:45] LABS: BILIRUBIN, URINE MANUAL NEGATIVE (NEGATIVE); BLOOD URINE MANUAL NEGATIVE (NEGATIVE); GLUCOSE, URINE (UA) MANUAL NEGATIVE (NEGATIVE); KETONE, URINE MANUAL NEGATIVE (NEGATIVE); LEUKOCYTE ESTERASE, URINE MAN NEGATIVE (NEGATIVE); NITRITE, URINE MANUAL NEGATIVE (NEGATIVE); PROTEIN, URINE MANUAL NEGATIVE (NEGATIVE); UROBILINOGEN, URINE MANUAL NORMAL (NORMAL)
== END ==
LOC: M SMT 17:14
PROVIDERS: ATTEND Urology
DX: Z87.898 Personal history of other specified conditions (principal); Z79.899 Other long term (current) drug therapy
CPT/HCPCS: 81002; 87086; 88108; G0463

== ENCOUNTER → 2022-08-22 | Outpatient (CLI) | payer MEDICARE ==
[2022-08-22 17:23] LABS: CARBON DIOXIDE LEVEL 29 MMOL/L (20-31); CHLORIDE LEVEL 101 MMOL/L (98-107); POTASSIUM SERUM 3.9 MMOL/L (3.5-5.1); SODIUM LEVEL 139 MMOL/L (136-145)
[2022-08-22 17:27] LABS: BLOOD UREA NITROGEN 17 MG/DL (9-23); GLUCOSE, FASTING 213 MG/DL (74-106)
[2022-08-22 17:29] LABS: CREATININE FOR GFR 0.69 MG/DL (0.55-1.30); GLOMERULAR FILTRATION RATE > 60.0 (>39)
== END ==
LOC: M LAB 16:04
PROVIDERS: ATTEND Neurological Surgery
DX: M96.1 Postlaminectomy syndrome, not elsewhere classified (principal)

== ENCOUNTER → 2022-08-24 | Outpatient (CLI) | payer MEDICARE ==
[~2022-08-24] MED LIST changes: +PROHANCE 279.3MG/ML 15ML VIAL As Ordered ONE
== END ==
LOC: M RAD 10:50
PROVIDERS: ATTEND Neurological Surgery
DX: M54.50 Low back pain, unspecified (principal); M71.22 Synovial cyst of popliteal space [Baker], left knee
CPT/HCPCS: 72131; 72158; A9576

== ENCOUNTER → 2022-09-06 | Outpatient (CLI) | payer MEDICARE ==
[~2022-09-06] MED LIST changes: -PROHANCE 279.3MG/ML 15ML VIAL As Ordered ONE
== END ==
LOC: M WHC 13:13
PROVIDERS: ATTEND Neurological Surgery
DX: M96.1 Postlaminectomy syndrome, not elsewhere classified (principal); M71.38 Other bursal cyst, other site; M85.80 Other specified disorders of bone density and structure, unspecified site; Z79.890 Hormone replacement therapy

== ENCOUNTER 2023-01-24 20:08 | Emergency (ER) | payer MEDICARE ==
[~2023-01-24] VITALS: Ht 160 cm; Wt 71.8 kg
[~2023-01-24 20:08] MED LIST changes: +ENAL1TAB48 PO; -ENAL5TA PO
[2023-01-24] MEDS ORDERED: PROPARACAINE 0.5% OPHTH SOL 15ML OU ONE (23:40)
[2023-01-24] MEDS ORDERED: FLUORESCEIN OPHTH 1MG STRIP OU ONE (23:40)
[2023-01-25] MEDS ORDERED: CIPROFLOXACIN 0.3% OPHTH SOLN 2.5ML OS ONE (00:10)
[2023-01-25] MEDS ORDERED: CIPR0.3S37 OS (00:14)
[2023-01-25 00:46] VITALS: BP 139/74
== END 2023-01-25 00:47 | disposition home or self-care (01) ==
LOC: M ED 20:08
DX: H11.32 Conjunctival hemorrhage, left eye (principal); I10 Essential (primary) hypertension; E78.5 Hyperlipidemia, unspecified; K21.9 Gastro-esophageal reflux disease without esophagitis; Z86.79 Personal history of other diseases of the circulatory system; Z79.01 Long term (current) use of anticoagulants; Z88.7 Allergy status to serum and vaccine; Z88.2 Allergy status to sulfonamides; Z88.5 Allergy status to narcotic agent; Z88.1 Allergy status to other antibiotic agents; Z79.82 Long term (current) use of aspirin; Z79.02 Long term (current) use of antithrombotics/antiplatelets; Z79.810 Long term (current) use of selective estrogen receptor modulators (SERMs); Z79.899 Other long term (current) drug therapy

== ENCOUNTER → 2023-06-07 | Outpatient (CLI) | payer MEDICARE ==
[~2023-06-07] MED LIST changes: +CIPR0.3S37 OS
== END ==
LOC: M WHC 14:37
PROVIDERS: ATTEND Internal Medicine Hematology
DX: Z12.31 Encounter for screening mammogram for malignant neoplasm of breast (principal)

== ENCOUNTER → 2023-10-10 | Outpatient (REF) | payer MEDICARE ==
[2023-10-10 13:42] LABS: APPEARANCE, URINE CLOUDY (CLEAR); BACTERIA, URINE AUTO 1+ (NEGATIVE); BILIRUBIN, URINE AUTO NEGATIVE (NEGATIVE); BLOOD, URINE BLOOD NEGATIVE (NEGATIVE); COLOR, URINE YELLOW (YELLOW); GLUCOSE, URINE (UA) AUTO NEGATIVE (NEGATIVE); KETONE, URINE AUTO NEGATIVE (NEGATIVE); LEUKOCYTE ESTERASE, URINE AUTO 3+ (NEGATIVE); NITRITE, URINE AUTO NEGATIVE (NEGATIVE); PROTEIN, URINE AUTO 1+ mg/dL (NEGATIVE); RBC, URINE AUTO 0 /HPF (0-3); SPECIFIC GRAVITY URINE AUTO 1.019 (1.002-1.035); SQUAMOUS EPITHELIAL CELL UR AU 0 /HPF (0-6); UROBILINOGEN, URINE AUTO 0.2 mg/dL (0.0-2.0); WBC, URINE AUTO TNTC /HPF (0-3)
== END ==
LOC: M SFHCPLAZ 13:01
PROVIDERS: ATTEND Internal Medicine Hematology
DX: N30.00 Acute cystitis without hematuria (principal)

== ENCOUNTER → 2023-10-26 | Outpatient (CLI) | payer MEDICARE ==
[2023-10-26 19:11] LABS: APPEARANCE, URINE CLEAR (CLEAR); BACTERIA, URINE AUTO NEGATIVE (NEGATIVE); BILIRUBIN, URINE AUTO NEGATIVE (NEGATIVE); BLOOD, URINE BLOOD NEGATIVE (NEGATIVE); COLOR, URINE YELLOW (YELLOW); GLUCOSE, URINE (UA) AUTO NEGATIVE (NEGATIVE); KETONE, URINE AUTO NEGATIVE (NEGATIVE); LEUKOCYTE ESTERASE, URINE AUTO NEGATIVE (NEGATIVE); NITRITE, URINE AUTO NEGATIVE (NEGATIVE); PROTEIN, URINE AUTO NEGATIVE (NEGATIVE); RBC, URINE AUTO 1 /HPF (0-3); SPECIFIC GRAVITY URINE AUTO 1.015 (1.002-1.035); SQUAMOUS EPITHELIAL CELL UR AU 0 /HPF (0-6); UROBILINOGEN, URINE AUTO 0.2 mg/dL (0.0-2.0); WBC, URINE AUTO 1 /HPF (0-3)
== END ==
LOC: M LAB 16:53
PROVIDERS: ATTEND Internal Medicine Hematology
DX: N30.00 Acute cystitis without hematuria (principal)

== ENCOUNTER 2024-09-03 15:34 | Emergency (ER) | payer MEDICARE ==
[~2024-09-03] VITALS: Ht 157.5 cm; Wt 72.6 kg
[~2024-09-03 15:34] MED LIST changes: -DOCU-153 PO; -GARL500C2 PO; +GARL500C6 PO; +STOO100C30 PO
[2024-09-03 19:53] VITALS: BP 139/66; TEMP 97.3; O2SAT 95
== END 2024-09-03 20:25 | disposition home or self-care (01) ==
LOC: M ED 15:34
DX: S13.4XXA Sprain of ligaments of cervical spine, initial encounter (principal); M25.551 Pain in right hip; V49.40XA Driver injured in collision with unspecified motor vehicles in traffic accident, initial encounter; I10 Essential (primary) hypertension; K21.9 Gastro-esophageal reflux disease without esophagitis; M54.50 Low back pain, unspecified; E03.9 Hypothyroidism, unspecified; Z87.891 Personal history of nicotine dependence; Z88.7 Allergy status to serum and vaccine; Z88.1 Allergy status to other antibiotic agents; Z88.5 Allergy status to narcotic agent; Z79.82 Long term (current) use of aspirin; Z79.02 Long term (current) use of antithrombotics/antiplatelets; Z79.899 Other long term (current) drug therapy; Y92.410 Unspecified street and highway as the place of occurrence of the external cause; Y93.89 Activity, other specified; Y99.9 Unspecified external cause status

== ENCOUNTER → 2025-05-19 | Outpatient (CLI) | payer MEDICARE ==
[~2025-05-19] MED LIST changes: +ASCO500T72 PO; -MYCO15CR TOP; +NYST15CR12 TOP; -VITA500T21 PO
== END ==
LOC: M RAD 15:42
PROVIDERS: ATTEND Neurological Surgery
DX: I67.1 Cerebral aneurysm, nonruptured (principal)